=== PATIENT | female | born 1935 | race Caucasian/White ===

== ENCOUNTER 2018-06-09 07:45 | Inpatient (IN) | payer MEDICARE, OTHER ==
[2018-06-09] MEDS ORDERED: SODIUM CHLORIDE 0.9% 1,000 ML IV STA (08:12)
--- NOTE | 2018-06-09 08:13 | ED ---
Chest Pain HPI - General Stated Complaint: Chest Pain Time Seen by Provider: 06/09/18 07:52 Source: RN notes reviewed, old records reviewed - History of Present Illness Initial Comments: This is an 82-year-old female the ER for evaluation. Patient's presenting for evaluation regards to chest pain. Patient is accepted in transfer for cardiac evaluation. Patient does have history of high blood pressure high cholesterol did have continued chest pain dizziness and shortness of breath at [facility], patient currently without chest pain. No recent travel history no sick contacts no recent fevers MD Complaint: chest pain -: hour(s) (Prior to arrival heartbeat, currently chest pain-free) Onset: during rest, awoke with symptoms Pain Location: left chest Pain Radiation: LUE Severity: mild Severity scale (1-10): 3 Quality: aching Consistency: now resolved Improves With: nothing Worsens With: nothing Anginal Symptoms: dyspnea Treatments Prior to Arrival: none - Related Data Allergies Allergy/AdvReac Type Severity Reaction Status Date / Time clindamycin Allergy Rash/Hives Verified 06/09/18 08:36 codeine Allergy Rash/Hives Verified 06/09/18 08:03 latex Allergy Rash/Hives Verified 06/09/18 08:21 Penicillins Allergy Rash/Hives Verified 06/09/18 08:03 Sulfa (Sulfonamide Allergy Rash/Hives Verified 06/09/18 08:03 Antibiotics) aspirin AdvReac Nausea & Verified 06/09/18 08:21 Vomiting Review of Systems ROS Statement: Those systems with pertinent positive or pertinent negative responses have been documented in the HPI. ROS Other: All systems not noted in ROS Statement are negative. EKG Findings - EKG Comments: EKG Findings:: EKG shows sinus rhythm rate of 67, KS 136, QRS 86, QTc 490, patient does have new T-wave inversion laterally General Exam General appearance: alert, in no apparent distress Head exam: Present: atraumatic, normocephalic, normal inspection Eye exam: Present: normal appearance, PERRL, EOMI. Absent: scleral icterus, conjunctival injection, periorbital swelling ENT exam: Present: normal exam, mucous membranes moist Neck exam: Present: normal inspection. Absent: tenderness, meningismus, lymphadenopathy Respiratory exam: Present: normal lung sounds bilaterally. Absent: respiratory distress, wheezes, rales, rhonchi, stridor Cardiovascular Exam: Present: regular rate, normal rhythm, normal heart sounds. Absent: systolic murmur, diastolic murmur, rubs, gallop, clicks GI/Abdominal exam: Present: soft, normal bowel sounds. Absent: distended, tenderness, guarding, rebound, rigid Extremities exam: Present: normal inspection, full ROM, normal capillary refill. Absent: tenderness, pedal edema, joint swelling, calf tenderness Back exam: Present: normal inspection Neurological exam: Present: alert, oriented X3, CN II-XII intact Psychiatric exam: Present: normal affect, normal mood Skin exam: Present: warm, dry, intact, normal color. Absent: rash Course Vital Signs 06/09/18 08:03 Temperature 98.2 F Pulse Rate 71 Respiratory 16 Rate Blood Pressure 180/94 O2 Sat by Pulse 93 L Oximetry - Reevaluation(s) Reevaluation #1: 06/09/18 09:42 Medical record is reviewed and patient's labs are evaluated Reevaluation #2: 06/09/18 09:42 Troponin is increased from 0.2-2.4, cardiology is made aware Chest Pain MDM - MDM 82 female the ER for evaluation, history of high blood pressure cholesterol, patient coming with non-ST elevated NH, does have T-wave inversion positive troponin 2.4 Critical Care Time Critical Care Time: Yes Total Critical Care Time: 31 Disposition Clinical Impression: Chest pain, NSTEMI (non-ST elevated myocardial infarction), ACS (acute coronary syndrome) Disposition: ADMITTED IP TO THIS [facility] Condition: Fair Is patient prescribed a controlled substance at d/c from ED?: No Referrals: Elizabet Christianson FNPBC [Primary Care Provider] - 1-2 days
[2018-06-09 08:56] LABS: Magnesium 1.8 mg/dL (1.6-2.3)
[2018-06-09 09:04] LABS: Partial Thromboplastin Time 19.7 sec (22.0-30.0)
[2018-06-09 09:24] LABS: Creatine Kinase MB 16.4 ng/mL (0.0-2.4)
[2018-06-09] MEDS ORDERED: HEPARIN SODIUM,PORCINE 5,000 UNIT/ML 1 ML VIAL IV ONE (09:37)
[2018-06-09] MEDS ORDERED: HEPARIN SODIUM,PORCINE 5,000 UNIT/ML 1 ML VIAL IV PRN (09:37)
[2018-06-09] MEDS ORDERED: NITROGLYCERIN SL TABS 0.4 MG TAB SUBLINGUAL PRN ×3 (09:37→17:37)
[2018-06-09 09:42] LABS: Troponin I 2.25 ng/mL (0.000-0.034)
[2018-06-09] MEDS ORDERED: HEPARIN SOD,PORK IN 0.45% NACL 25,000 UNIT in 0.45% NACL 1 500ML.BAG IV SCH (09:45)
[2018-06-09] MEDS ORDERED: ALPRAZolam 0.25 MG TAB PO PRN (10:42)
[2018-06-09] MEDS ORDERED: ALPRAZolam 0.5 MG TAB PO PRN (10:42)
[2018-06-09] MEDS ORDERED: ASPIRIN 325 MG TAB PO STA (10:42)
[2018-06-09] MEDS ORDERED: SODIUM CHLORIDE 0.9% 1,000 ML in EMPTY BAG 1 BAG IV ONE (10:42)
[2018-06-09] MEDS ORDERED: ATORVASTATIN 80 MG TAB PO STA (10:42)
[2018-06-09] MEDS: NITROGLYCERIN OINT 1 INCH/GM PACKET TOPICAL SCH ×2 (10:55→22:56)
--- NOTE | 2018-06-09 11:50 | CONS ---
CONSULTATION Mrs. Savage is an 82-year-old female who was transferred from [facility]. She has a history of hypertension and presented to the emergency room at [facility] with symptoms of severe chest discomfort across the chest radiating to the arm associated with dyspnea. Her EKG showed T-wave inversion anteriorly and she had mild troponin elevation. She was transferred to [facility]. At the time of my evaluation, she has minimal discomfort. She denies any prior history. She has a prior history of stroke, but no history of cardiac disease. She has no history of PND or orthopnea. She has some peripheral edema. No dizziness, palpitation, or syncope. Her coronary risk factors are remarkable the history of hypertension. She is nondiabetic, nonsmoker. Her prior history is remarkable for the history of stroke that is a while ago. She cannot recall the name of her medication at this point. REVIEW OF SYSTEMS: RESPIRATORY SYSTEM: She has no history of documented asthma or emphysema. No wheezing. GI SYSTEM: No recent GI bleeding. No peptic ulcer disease. SYSTEM: No dysuria or hematuria, NERVOUS SYSTEM: Prior history of stroke, but no history of seizure. PAST SURGICAL HISTORY: Positive for tonsillectomy, cholecystectomy. She has history of hiatal hernia, but no surgery. PHYSICAL EXAMINATION: She is an 82-year-old female, alert, oriented, in no apparent distress. Blood pressure 180/90 with the heart rate in the 70s. HEAD: Normocephalic. EYES: Sclerae anicteric. NECK: Good carotid upstroke. No jugular venous distention. LUNGS: Clear to auscultation. HEART: Regular rate and rhythm. S1, S2. No S3 with systolic murmur, ejection type, heard at the base. No diastolic murmur. No rub. ABDOMEN: Soft, nontender. Positive bowel sound. No organomegaly. EXTREMITIES: No edema. Intact distal pulses. EKG reveals sinus mechanism with a normal axis and intervals and T-wave inversion in the anterolateral leads consistent with anterior wall ischemia. LAB DATA: Lab data revealed a troponin of 2.2 at [facility]. Her renal function at [facility] was BUN of 17, creatinine of 1. At that time, her troponin was 0.24. IMPRESSION: 1. Acute myocardial infarction, non ST elevation myocardial infarction at this point in the left anterior descending artery territory. 2. History of hypertension. 3. Prior history of stroke. 4. History of arthritis. 5. History of hiatal hernia. RECOMMENDATION: From the cardiac standpoint, I have recommended proceeding with coronary angiography to assess her status and guide her treatment. The rationale behind the procedure, its risks and complications were discussed with the patient who is in full understanding and agreement. An echocardiogram with Doppler will be obtained. Depending on her progress, further recommendation will be made. Thank you for this consult. We will follow with you. MMODL / IJN: [id number] /
[2018-06-09] MEDS ORDERED: ACETAMINOPHEN TAB 325 MG TAB PO PRN (16:00)
[2018-06-09] MEDS ORDERED: NALOXONE 0.4 MG/ML 1 ML VIAL IV PRN (16:00)
--- NOTE | 2018-06-09 16:07 | ECHOF ---
Referral Reason:mi MEASUREMENTS -------- HEIGHT: 165.1 cm WEIGHT: 81.6 kg BP: RVIDd: 2.7 cm (< 3.3) IVSd: 1.2 cm (0.6 - 1.1) LVIDd: 4.2 cm (3.9 - 5.3) LVPWd: 1.3 cm (0.6 - 1.1) IVSs: 1.4 cm LVIDs: 3.2 cm LVPWs: 1.3 cm LA Diam: 3.7 cm (2.7 - 3.8) Ao Diam: 2.8 cm (2.0 - 3.7) AV Cusp: 1.8 cm (1.5 - 2.6) LA Diam: 3.9 cm (2.7 - 3.8) MV EXCURSION: 18.742 mm (> 18.000) MV EF SLOPE: 62 mm/s (70 - 150) EPSS: 0.7 cm MV E Mikey: 0.46 m/s MV DecT: 228 ms MV A Mikey: 0.61 m/s MV E/A Ratio: 0.76 RAP: 5.00 mmHg RVSP: 20.82 mmHg FINDINGS -------- Sinus rhythm. This was a technically adequate study. The left ventricular size is normal. There is mild concentric left ventricular hypertrophy. Overa ll left ventricular systolic function is mild-moderately impaired with, an EF between 40 - 45 %. Mi d anterior LV wall motion is hypokinetic. Apical anterior LV wall motion is hypokinetic. Apical lateral LV wall motion is hypokinetic. The right ventricle is normal in size. The left atrial size is normal. The right atrial size is normal. The aortic valve is trileaflet, and appears structurally normal. No aortic stenosis or regurgitation. Mild mitral annular calcification present. Mild mitral regurgitation is present. Mild tricuspid regurgitation present. There is no evidence of pulmonary hypertension. The right v entricular systolic pressure, as measured by Doppler, is 20.82mmHg. There is no pulmonic regurgitation present. The aortic root size is normal. There is no pericardial effusion. CONCLUSIONS -------- 1. Sinus rhythm. 2. The left ventricular size is normal. 3. There is mild concentric left ventricular hypertrophy. 4. Overall left ventricular systolic function is mild-moderately impaired with, an EF between 40 - 45 %. 5. Mid anterior LV wall motion is hypokinetic. 6. Apical anterior LV wall motion is hypokinetic. 7. Apical lateral LV wall motion is hypokinetic. 8. The left atrial size is normal. 9. The aortic valve is trileaflet, and appears structurally normal. No aortic stenosis or regurgitati on. 10. Mild mitral annular calcification present. 11. Mild mitral regurgitation is present. 12. Mild tricuspid regurgitation present. 13. There is no evidence of pulmonary hypertension. 14. There is no pulmonic regurgitation present. 15. The aortic root size is normal. 16. There is no pericardial effusion. RFID SPECIALIST: Ilana Alba RDCS
--- NOTE | 2018-06-09 16:19 | P.HPIM ---
History of Present Illness H&P Date: 06/09/18 Chief Complaint: Chest pain Patient was seen and examined prior to cardiac catheterization. 82 year old F with PMH Hypertension and CAD presents to the hospital as a transfer from [facility]. Patient reports initially being woken up with excruciating chest pain. Patient states her chest pain was associated with lightheadedness and shortness of breath. She is unable to effectively describe her chest pain at that time. Her pain was worrisome enough to warrant a trip to [facility]. She underwent a comprehensive workup that found she had elevated Troponins. She was transferred to [facility] for further care and management. Patient denies any previous history of DE or CAD. She does report a stroke in the past. Patient denies any exertional chest pain. She denies any paroxysmal nocturnal dyspnea or orthopnea. In the ED, troponin was 2.250 with EKG showing T-wave inversion in the lateral leads. Troponin was 0.24 at [facility]. Currently, patient complains of mild chest pain. Pain is located in the left chest. Pain is 3/10 in severity. Patient describes the pain as soreness and aching in nature. She denies any alleviating or aggravating factors. Patient states radiation of her chest pain into the L arm. Review of Systems All systems: negative Past Medical History Past Medical History: Hyperlipidemia, Hypertension Additional Past Medical History / Comment(s): Right shoulder pain, trigger finger, allergic rhinitis, History of Any Multi-Drug Resistant Organisms: None Reported Past Surgical History: Appendectomy, Cholecystectomy, Hernia Repair, Hysterectomy, Tonsillectomy Additional Past Surgical History / Comment(s): left rotator cuff repair, carpal tunnel release Past Psychological History: No Psychological Hx Reported Smoking Status: Never smoker Past Alcohol Use History: None Reported Past Drug Use History: None Reported Medications and Allergies Home Medications Medication Instructions Recorded Confirmed Type Calcium Carbonate [Tums] 500 mg PO TID PRN 06/09/18 06/09/18 History Clopidogrel [Plavix] 75 mg PO DAILY 06/09/18 06/09/18 History Ranitidine HCl [Zantac] 150 mg PO DAILY 06/09/18 06/09/18 History Triamterene/Hydrochlorothiazid 0.5 tab PO DAILY 06/09/18 06/09/18 History [Maxzide 37.5-25] Allergies Allergy/AdvReac Type Severity Reaction Status Date / Time clindamycin Allergy Rash/Hives Verified 06/09/18 11:01 codeine Allergy Rash/Hives Verified 06/09/18 11:01 latex Allergy Rash/Hives Verified 06/09/18 11:01 Penicillins Allergy Rash/Hives Verified 06/09/18 11:01 Sulfa (Sulfonamide Allergy Rash/Hives Verified 06/09/18 11:01 Antibiotics) aspirin AdvReac Nausea & Verified 06/09/18 11:01 Vomiting Physical Exam Vitals: Vital Signs Temp Pulse Resp BP Pulse Ox 06/09/18 15:53 98.2 F 06/09/18 15:47 82 18 188/92 100 06/09/18 11:30 66 18 188/94 98 06/09/18 10:51 68 18 168/121 96 06/09/18 08:03 98.2 F 71 16 180/94 93 L Intake and Output 06/09/18 06/09/18 06/09/18 06:59 14:59 22:59 Other: Weight 83.18 kg General: [non toxic], [no distress], [appears at stated age] Derm: [warm], [dry] Head: [atraumatic], [normocephalic], [symmetric] Eyes: [EOMI], [no lid lag], [anicteric sclera] Mouth: [no lip lesion], [mucus membranes moist] Cardiovascular: [S1S2 reg], [systolic murmur], [positive DP pulse bilateral], Lungs: [CTA bilateral], [no rhonchi, no rales] , [no accessory muscle use] Abdominal: [soft], [ nontender to palpation], [no guarding], [no appreciable organomegaly] Ext: [no gross muscle atrophy], [no edema], [no contractures] Neuro: [ CN II-XI grossly intact], [no focal neuro deficits] Psych: [Alert], [oriented], [appropriate affect] Results Labs: Abnormal Lab Results - Last 24 Hours (Table) 06/09/18 06/09/18 Range/Units 08:23 08:23 APTT 19.7 L (22.0-30.0) sec Total Creatine Kinase 218 H (30-135) U/L CK-MB (CK-2) 16.4 H (0.0-2.4) ng/mL Troponin I 2.250 H* (0.000-0.034) ng/mL Thrombosis Risk Factor Assmnt - Choose All That Apply Any of the Below Risk Factors Present?: Yes Each Factor Represents 1 point: Obesity (BMI >25) Other Risk Factors: No Other congenital or acquired thrombophilia - If yes, enter type in comment: No Thrombosis Risk Factor Assessment Total Risk Factor Score: 1 Thrombosis Risk Factor Assessment Level: Low Risk Assessment and Plan Assessment: Assessment and Plan 1. Chest pain: Concerns of NSTEMI. Troponin 0.24 to 2.250 with EKG showing T wave inversion in the lateral leads. Start ASA 81 mg PO QD and Lipitor 80 mg PO QHS. Heparin drip pending Cardiac catheterization. Start Metoprolol 50 mg PO BID. Nitrostat PRN for chest pain. Telemetry monitoring. HEART healthy diet. FU Cardiology recommendations, Echocardiogram, Lipid panel 2. Hypertension: BP 188/92. On HCTZ-Triamterene at home. Will hold and start Metoprolol 50 mg PO BID. Monitor vitals, adjust medication as necessary. 3. DVT/GI Prophylaxis: Heparin drip, SCD boots. Pepcid 20 mg PO BID. Patient transferred for troponin elevation. Cardiology consulted, pending cardiac catheterization.
[2018-06-09] MEDS ORDERED: SODIUM CHLORIDE 0.9% 1,000 ML IV ONE (16:20)
[2018-06-09] MEDS ORDERED: VERAPAMIL 2.5 MG/ML 2 ML AMP ONE (16:22)
[2018-06-09] MEDS ORDERED: fentaNYL (PF) 50 MCG/ML 2 ML AMP ONE (16:23)
[2018-06-09] MEDS ORDERED: HEPARIN SODIUM 1,000 UN/ML (10ML VL) ONE (16:23)
[2018-06-09 16:27] LABS: Creatine Kinase MB 56.4 ng/mL (0.0-2.4)
[2018-06-09] MEDS ORDERED: fentaNYL (PF) 50 MCG/ML 2 ML AMP IVP ONE (16:31)
[2018-06-09] MEDS ORDERED: LIDOCAINE 2% INJ 20 MG/ML SQ ONE ×2 (16:33→16:45)
[2018-06-09] MEDS ORDERED: VERAPAMIL SYRINGE (5 MG/10 ML) IVP ONE (16:34)
[2018-06-09] MEDS ORDERED: BIVALIRUDIN BOLUS 250 MG/50 ML IV ONE (16:52)
[2018-06-09] MEDS ORDERED: BIVALIRUDIN 250 MG in SODIUM CHLORIDE 0.9% 50 ML IV ONE (16:52)
[2018-06-09] MEDS ORDERED: CLOPIDOGREL 75 MG TAB ONE (16:54)
[2018-06-09] MEDS ORDERED: NITROGLYCERIN 1000MCG/10ML SYRINGE INTRAARTER ONE (16:57)
[2018-06-09] MEDS ORDERED: CLOPIDOGREL 75 MG TAB PO ONE (16:58)
[2018-06-09] MEDS ORDERED: IOPAMIDOL-370 125ML BTL INJ ONE (17:00)
[2018-06-09] MEDS ORDERED: IOPAMIDOL-370 100ML BTL INJ ONE (17:29)
[2018-06-09] MEDS ORDERED: ATROPINE SULFATE 0.1 MG/ML 10ML SYRINGE IV PRN (17:37)
[2018-06-09] MEDS ORDERED: RX INFO: IV CONTRAST WAS GIVEN 1 EACH MISC MISCELLANE PRN (17:37)
[2018-06-09] MEDS ORDERED: MAG HYDROX/AL HYDROX/SIMETH 30 ML CUP PO PRN (17:37)
[2018-06-09] MEDS ORDERED: ZOLPIDEM 5 MG TAB PO PRN (17:37)
[2018-06-09] MEDS ORDERED: SODIUM CHLORIDE 0.9% 1,000 ML IV SCH (17:45)
[2018-06-09] MEDS: FAMOTIDINE 20 MG TAB PO SCH (20:23)
[2018-06-09] MEDS: LISINOPRIL 5 MG TAB PO SCH (20:23)
[2018-06-09] MEDS: METOPROLOL TARTRATE 50 MG TAB PO SCH (20:23)
[2018-06-09 20:37] LABS: Creatine Kinase MB 55.1 ng/mL (0.0-2.4)
[2018-06-09 20:41] VITALS: BMI 33.5
[2018-06-09 20:45] LABS: Troponin I 14.7 ng/mL (0.000-0.034)
[2018-06-09] MEDS ORDERED: METOPROLOL TARTRATE 50 MG TAB PO SCH (21:00)
--- NOTE | 2018-06-09 23:02 | CC ---
CARDIAC CATHETERIZATION REPORT Mrs. Savage is an 82-year-old female with known history of hypertension, hyperlipidemia, who was transferred from [facility] after she presented with symptoms of chest discomfort and mild elevation of troponin with T-wave inversion anteriorly. In view of that, recommendation made regarding cardiac catheterization. The procedures, risks and complications were discussed with the patient who is in full understanding and agreement. PROCEDURE: Patient was brought to [facility] in a fasting state after receiving fentanyl and Benadryl and achieving moderate conscious sedated state. Using Xylocaine anesthesia and Seldinger technique, a 6-Dominican sheath was introduced in the right radial artery. There was inability to advance the catheter in the right radial artery because of a tight radial loop. At that point, using Xylocaine anesthesia in the Seldinger technique, a 6-Dominican sheath was introduced in the right femoral artery. Selective right and left coronary angiography performed using 6-Dominican 4 and half bend left Chuck and 4-Dominican right Chuck catheter. Multiple views of the coronary artery including hemiaxial views were obtained. Following that, angioplasty and stenting was performed. Following that, a 6-Dominican tight pigtail catheter was introduced into the left ventricle and pressures were calculated. Following that, the catheters were removed. The right femoral sheath was sutured in place and the right radial artery sheath was removed and hemostasis was obtained with TR band placement. There was no immediate complication. FINDINGS: FLUOROSCOPY: There was a 2nd calcification involving the left anterior descending artery. SELECTIVE CORONARY ANGIOGRAPHY: LEFT MAIN: This is a large-sized vessel bifurcating left circumflex, left anterior descending artery, left main coronary artery has no evidence of high-grade stenosis. LEFT ANTERIOR DESCENDING ARTERY: This is a large-sized vessel reaching toward the apex with a wraparound apex segment giving rise to a large diagonal branch proximally. The LAD at the takeoff of diagonal branch has a 99% stenosis. The diagonal branch has a long diffuse area of stenosis up to 85-90 percent. The rest of the vessel has no high- grade stenosis. LEFT CIRCUMFLEX: This is a large dominant vessel bifurcating distally PDA and posterolateral segment branches, giving rise to a large obtuse marginal branch proximally. The left circumflex proximally has a 20% to 30% plaque. RIGHT CORONARY ARTERY: This is a small nondominant vessel that has 50% plaque proximally. The rest of the vessel has no high-grade stenosis. LEFT VENTRICULOGRAM: Left ventriculogram was not performed. HEMODYNAMICS: There was no gradient across the aortic valve. The left ventricle end-diastolic pressure was 24 mm of Hg. CONCLUSION: 1. 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 2. Mild to moderate disease in the right coronary artery and the right coronary artery and left circumflex. 3. Elevated left ventricle end-diastolic pressure. RECOMMENDATION: In view of that and in view of finding in the anatomy, I recommend proceeding with angioplasty and stenting of the LAD and diagonal branch. The procedures as well as risks and complications were discussed with the patient who is in full understanding and agreement. MMODL / IJN: [id number] /
--- NOTE | 2018-06-09 23:14 | PTCA ---
PERCUTANEOUSTRANS CORORONARY ANGIOGRAPHY Mrs. Savage is an 82-year-old female known history of hypertension, hyperlipidemia, who presented with an acute non ST-segment elevation myocardial infarction. The LAD territory underwent cardiac catheterization, was found to have critical stenosis involving the LAD and diagonal branch. In view of that, recommendation regarding angioplasty and stenting the procedures risks and complication were discussed with the patient who is in full understanding and agreement. PROCEDURE: A 6-German FR4 guiding catheter in the system. After cannulating the left main, a 0.014 balanced medium weight J-wire was advanced across the lesion, that lesion positioned distal LAD. Subsequently another 0.014 balanced medium weight J-wire was advanced in position in the first diagonal branch. Following that, attempt to advance a 2.5 x 23 mm Xience Angie stent into the diagonal branch were unsuccessful. That stent was removed and a 2.5 x 12 mm balloon was advanced into inflation at 8 atmospheres was done for were done. Following that, the balloon was removed and the stent was advanced, deployed and post at 16 atmospheres. Following that, the balloon was removed and a 2.75 x 18 mm Xience CR stent was deployed in the LAD and post dilated at 16 atmospheres following that the balloon was removed and a 2.75 x 12 mm CR Xience Angie stent was deployed proximal to the LAD stent and postdilated at 16 atmospheres. Following that, images were obtained repeated. Those images reveal stable successful stenting. At that point, the guiding catheter, the balloon and the guidewire removed. The left ventricular end-diastolic pressure was calculated following that. The catheter were removed. The sheath was sutured in place and the radial sheath was removed and hemostasis was obtained with deployment of a TR band. There was no immediate complication patient is returned to her room in stable condition. Of note, the patient received Angiomax per protocol as well as continued on Plavix. She had chest discomfort and EKG changes with the inflation that resolved at the end procedure. RESULTS: 1. Successful stenting of the proximal LAD with reduction of stenosis from 99% to 0%. 2. Successful stenting of the first diagonal branch with reduction of stenosis from 90% to 0%. RECOMMENDATION: Patient be continued on aspirin, Plavix beta blockers and statin the importance of dual antiplatelet treatment were discussed with the patient and her family and they are in full understanding and agreement. Duration of procedure: 57 minutes. MMODL / IJN: [id number] /
[2018-06-10] MEDS: HYDROcodone/APAP 5-325MG 1 EACH TAB PO PRN ×2 (01:27→15:40)
[2018-06-10 06:26] LABS: Basophils % (A) 0 %; Eosinophils # (A) 0.1 k/uL (0-0.7); Eosinophils % (A) 1 %; HCT 45.2 % (34.0-46.0); HGB 14.5 gm/dL (11.4-16.0); Lymphocytes # (A) 0.9 k/uL (1.0-4.8); Lymphocytes % (A) 10 %; MCH 29.4 pg (25.0-35.0); MCV 91.9 fL (80.0-100.0); Mean Platelet Volume 7.2; Monocytes # (A) 0.5 k/uL (0-1.0); Monocytes % (A) 6 %; Neutrophils # (A) 6.6 k/uL (1.3-7.7); Neutrophils % (A) 80 %; Platelet Count 165 k/uL (150-450); RBC 4.92 m/uL (3.80-5.40); RDW 13.1 % (11.5-15.5); WBC 8.3 k/uL (3.8-10.6)
[2018-06-10 07:19] LABS: Carbon Dioxide 19 mmol/L (22-30); Chloride 111 mmol/L (98-107); Glucose 179 mg/dL (74-99); Potassium 3.8 mmol/L (3.5-5.1); Sodium 139 mmol/L (137-145)
[2018-06-10 07:20] LABS: Anion Gap 9 mmol/L; Blood Urea Nitrogen 14 mg/dL (7-17); Calcium 8.8 mg/dL (8.4-10.2); Cholesterol 138 mg/dL (<200); HDL Cholesterol 49 mg/dL (40-60); LDL Cholesterol,Calculated 74 mg/dL (0-99); Triglycerides 73 mg/dL (<150)
[2018-06-10] MEDS: LISINOPRIL 5 MG TAB PO SCH (08:06)
[2018-06-10] MEDS: ASPIRIN 81 MG PO SCH (08:06)
[2018-06-10] MEDS: METOPROLOL TARTRATE 50 MG TAB PO SCH ×2 (08:06→20:29)
[2018-06-10] MEDS: FAMOTIDINE 20 MG TAB PO SCH ×2 (08:06→20:30)
[2018-06-10] MEDS: ATORVASTATIN 80 MG TAB PO SCH (08:06)
--- NOTE | 2018-06-10 08:59 | P.DS ---
Providers Date of admission: 06/09/18 09:37 Expected date of discharge: 06/10/18 Attending physician: Steve Dove Consults: 06/09/18 09:37 Consult Physician Urgent Consulting Provider: Wyatt Mata Consult Reason/Comments: nstemi Do you want consulting provider notified?: Yes 06/09/18 17:37 Consult Physician Routine Consulting Provider: [facility] Consult Reason/Comments: Post Interventional patient Do you want consulting provider notified?: Already Contacted Primary care physician: Elizabet Christianson [facility] - Discharge Diagnosis(es) (1) Hypertension Current Visit: Yes Status: Acute (2) History of CVA (cerebrovascular accident) Current Visit: Yes Status: Acute (3) NSTEMI (non-ST elevated myocardial infarction) Current Visit: Yes Status: Acute Hospital Course: 82 year old F with PMH Hypertension and CAD presents to the hospital as a transfer from [facility]. Patient reports initially being woken up with excruciating chest pain. Patient states her chest pain was associated with lightheadedness and shortness of breath. She is unable to effectively describe her chest pain at that time. Chest pain at that time was across her chest, extremely severe and radiated into both arms. Her pain was worrisome enough to warrant a trip to [facility]. She underwent a comprehensive workup that found she had elevated Troponin. She was transferred to [facility] for further care and management. Patient denies any previous history of MT or CAD. She does report a stroke in the past, last in 2012 with right-sided residual weakness that has since resolved. Patient denies any exertional chest pain. She denies any paroxysmal nocturnal dyspnea or orthopnea. In the ED, troponin was 2.250 with EKG showing T-wave inversion in the lateral leads. Troponin was 0.24 at [facility]. With regard to her chest pain, she was taken in for coronary catheterization from the emergency room. Catheterization revealed 99% occlusion of the LAD and 90% occlusion of the first diagonal which was successfully stented. Echocardiogram was obtained which showed an ejection fraction of 40-45% with hypokinetic wall motions. Heparin drip was discontinued after the procedure and patient was started on aspirin and Plavix. She was resumed on Lipitor and metoprolol. She was started on lisinopril as well. Patient was seen and examined on 06/10/2018 at 8:45AM. Patient states that her chest pain is resolved since the catheterization. She denies any chest pain, shortness of breath or palpitations at this time. General: [non toxic], [no distress], [appears at stated age] Derm: [warm], [dry] Head: [atraumatic], [normocephalic], [symmetric] Eyes: [EOMI], [no lid lag], [anicteric sclera] Mouth: [no lip lesion], [mucus membranes moist] Cardiovascular: [S1S2 reg], [systolic murmur], [positive DP pulse bilateral], Lungs: [CTA bilateral], [no rhonchi, no rales] , [no accessory muscle use] Abdominal: [soft], [ nontender to palpation], [no guarding], [no appreciable organomegaly] Ext: [no gross muscle atrophy], [no edema], [no contractures] Neuro: [no focal neuro deficits] Psych: [Alert], [oriented], [appropriate affect] Assessment and Plan 1. Chest pain: Concerns of NSTEMI. Troponin 0.24 to 2.250 with EKG showing T wave inversion in the lateral leads. Coronary cath shows 99% occlusion of LAD and 90% occlusion of the first diagonal, successfully stented. Echocardiogram shows EF of 40-45% with hypokinetic wall motion. Continue ASA 81 mg PO QD, Plavix 75 mg PO QD and Lipitor 80 mg PO QHS. Continue Metoprolol 50 mg PO BID. Start Lisinopril 5 mg PO BID. Lipid panel shows LDL 74 within normal limits. Nitrostat PRN for chest pain. Telemetry monitoring. HEART healthy diet. FU Cardiology recommendations 2. Hypertension: BP 143/69. On HCTZ-Triamterene at home. Continue Metoprolol 50 mg PO BID and start Lisinopril 5 mg PO BID. Monitor vitals, adjust medication as necessary. 3. h/o CVA: Stable. Continue ASA 81 mg PO QD, Plavix 75 mg PO QD and Lipitor 80 mg PO QHS. 4. DVT/GI Prophylaxis: Heparin drip, SCD boots. Pepcid 20 mg PO BID. Patient underwent coronary catheterization, 2 CYNTHIA successfully placed. Will follow cardiology recommendations for discharge planning. Possible DC today or tomorrow. Patient is advised on the need of dual antiplatelet therapy. Will need good cardiology follow-up on discharge. This complex discharge took greater than 30 minutes. Pertinent Studies: Coronary catheterization Echocardiogram Procedures: Coronary catheterization Patient Condition at Discharge: Stable Plan - Discharge Summary Discharge Rx Participant: No New Discharge Prescriptions: New Acetaminophen Tab [Tylenol] 650 mg PO Q6HR PRN #0 tab PRN Reason: Mild Pain Or Fever > 100.5 Aspirin 81 mg PO DAILY #30 chew Atorvastatin [Lipitor] 80 mg PO DAILY #30 tab Clopidogrel [Plavix] 75 mg PO DAILY #30 tab Lisinopril [Zestril] 5 mg PO BID #60 tab Metoprolol Tartrate [Lopressor] 25 mg PO BID #60 tab Nitroglycerin Sl Tabs [Nitrostat] 0.4 mg SUBLINGUAL Q5M PRN #30 tab PRN Reason: Chest Pain Continue Ranitidine HCl [Zantac] 150 mg PO DAILY Clopidogrel [Plavix] 75 mg PO DAILY Calcium Carbonate [Tums] 500 mg PO TID PRN PRN Reason: Heartburn Discontinued Triamterene/Hydrochlorothiazid [Maxzide 37.5-25] 0.5 tab PO DAILY Discharge Medication List Calcium Carbonate [Tums] 500 mg PO TID PRN 06/09/18 [History] Clopidogrel [Plavix] 75 mg PO DAILY 06/09/18 [History] Ranitidine HCl [Zantac] 150 mg PO DAILY 06/09/18 [History] Acetaminophen Tab [Tylenol] 650 mg PO Q6HR PRN #0 tab 06/10/18 [Rx] Aspirin 81 mg PO DAILY #30 chew 06/10/18 [Rx] Atorvastatin [Lipitor] 80 mg PO DAILY #30 tab 06/10/18 [Rx] Clopidogrel [Plavix] 75 mg PO DAILY #30 tab 06/10/18 [Rx] Lisinopril [Zestril] 5 mg PO BID #60 tab 06/10/18 [Rx] Metoprolol Tartrate [Lopressor] 25 mg PO BID #60 tab 06/10/18 [Rx] Nitroglycerin Sl Tabs [Nitrostat] 0.4 mg SUBLINGUAL Q5M PRN #30 tab 06/10/18 [Rx ] Follow up Appointment(s)/Referral(s): Elizabet Christianson FNPBC [Primary Care Provider] - 1-2 days Wyatt Mata MD [STAFF PHYSICIAN] - 1 Week Activity/Diet/Wound Care/Special Instructions: Diet: HEART healthy Please take all medications as advised. Please follow-up with your primary care provider within 1-2 days of discharge. Please follow-up with cardiology Dr. Mata within 1 week of discharge. Discharge Disposition: HOME SELF-CARE
[2018-06-10] MEDS ORDERED: ASPIRIN 325 MG TAB PO SCH (09:00)
--- NOTE | 2018-06-10 11:21 | PN ---
PROGRESS NOTE Mrs. Savage is an 82-year-old female who presented with non ST-segment elevation myocardial infarction, underwent stenting of her LAD and diagonal branch. She is doing well this morning. Her breathing is stable. She is denying any chest pain. She denies any dizziness or palpitation. She has continued to be on aspirin once a day, Lipitor 80 mg daily, Plavix 75 mg daily, lisinopril 5 mg twice a day, metoprolol tartrate 25 mg twice a day. PHYSICAL EXAMINATION: Blood pressure running in the 130s to 140s with a heart rate in 70s. LUNGS: Clear. Heart regular rate rhythm S1, S2. No S3 with systolic murmur. No diastolic murmur. No rub. ABDOMEN: Soft, nontender. Right groin hematoma. Right radial pulse is intact. LAB DATA: BUN and creatinine 14 and 0.7. Hemoglobin 14.5. Her peak troponin 14.7, LDL of 74. Her NT proBNP 2530. IMPRESSION: 1. Status post non ST-segment elevation myocardial infarction and stenting of the LAD and diagonal branch. 2. Hypertension. 3. Hyperlipidemia. RECOMMENDATIONS: I will increase the dose of her lisinopril. I will add Aldactone to her regimen, increase her level of activity. If she remains stable, she may be able to be discharged home tomorrow. MMODL / IJN: [id number] /
[2018-06-10] MEDS: SPIRONOLACTONE 25 MG TAB PO SCH (11:27)
[2018-06-10] MEDS: CLOPIDOGREL 75 MG TAB PO SCH (15:34)
[2018-06-10] MEDS: LISINOPRIL 10 MG TAB PO SCH (20:30)
[2018-06-11 06:38] LABS: Anion Gap 6 mmol/L; Blood Urea Nitrogen 17 mg/dL (7-17); Calcium 8.5 mg/dL (8.4-10.2); Carbon Dioxide 24 mmol/L (22-30); Chloride 107 mmol/L (98-107); Glucose 120 mg/dL (74-99); Mean Platelet Volume 7.3; Platelet Count 171 k/uL (150-450); Potassium 3.8 mmol/L (3.5-5.1); Sodium 137 mmol/L (137-145)
[2018-06-11] MEDS: ASPIRIN 81 MG PO SCH (09:04)
[2018-06-11] MEDS: SPIRONOLACTONE 25 MG TAB PO SCH (09:04)
[2018-06-11] MEDS: LISINOPRIL 10 MG TAB PO SCH (09:04)
[2018-06-11] MEDS: CLOPIDOGREL 75 MG TAB PO SCH (09:04)
[2018-06-11] MEDS: METOPROLOL TARTRATE 50 MG TAB PO SCH (09:04)
[2018-06-11] MEDS: FAMOTIDINE 20 MG TAB PO SCH (09:04)
[2018-06-11] MEDS: ATORVASTATIN 80 MG TAB PO SCH (09:04)
--- NOTE | 2018-06-11 09:08 | P.PN ---
Subjective Progress Note Date: 06/11/18 Principal diagnosis: NSTEMI patient was seen and examined. No acute events overnight. No more chest pain since cardiac catheterization. She denies any shortness of breath or palpitations. She denies any groin pain. Looking for to going home. Objective - Vital Signs Vital signs: Vital Signs Temp 98.4 F 06/11/18 03:49 Pulse 64 06/11/18 03:49 Resp 18 06/11/18 03:49 BP 150/79 06/11/18 03:49 Pulse Ox 95 06/11/18 03:49 Intake & Output 06/10/18 06/11/18 06/11/18 18:59 06:59 18:59 Intake Total 3030 1999 240 Balance 3030 1999 240 Weight 81.8 kg Intake: IV 3030 1999 Invasive Line 1 30 Invasive Line 2 3000 1999 Oral 240 Other: Voiding Method Toilet Toilet - Exam General: [non toxic], [no distress], [appears at stated age] Derm: [warm], [dry] Head: [atraumatic], [normocephalic], [symmetric] Eyes: [EOMI], [no lid lag], [anicteric sclera] Mouth: [no lip lesion], [mucus membranes moist] Cardiovascular: [S1S2 reg], [systolic murmur], [positive DP pulse bilateral], Lungs: [CTA bilateral], [no rhonchi, no rales] , [no accessory muscle use] Abdominal: [soft], [ nontender to palpation], [no guarding], [right groin no hematoma] Ext: [no gross muscle atrophy], [no edema], [no contractures] Neuro: [no focal neuro deficits] Psych: [Alert], [oriented], [appropriate affect] - Labs CBC & Chem 7: 06/11/18 05:56 06/11/18 05:56 Labs: Abnormal Lab Results - Last 24 Hours (Table) 06/11/18 Range/Units 05:56 Glucose 120 H (74-99) mg/dL Assessment and Plan Assessment: Assessment and Plan 1. NSTEMI: Troponin 0.24 to 2.250 with EKG showing T wave inversion in the lateral leads. Coronary cath shows 99% occlusion of LAD and 90% occlusion of the first diagonal, successfully stented. Echocardiogram shows EF of 40-45% with hypokinetic wall motion. Continue ASA 81 mg PO QD, Plavix 75 mg PO QD and Lipitor 80 mg PO QHS. Continue Metoprolol 50 mg PO BID, Lisinopril 5 mg PO BID. Start Aldactone 25 mg PO QD. Lipid panel shows LDL 74 within normal limits. Nitrostat PRN for chest pain. Telemetry monitoring. HEART healthy diet. FU Cardiology recommendations 2. Hypertension: BP 150/79. On HCTZ-Triamterene at home. Continue Metoprolol 50 mg PO BID, Lisinopril 5 mg PO BID. Start Aldactone 25 mg PO QD. Monitor vitals, adjust medication as necessary. 3. h/o CVA: Stable. Continue ASA 81 mg PO QD, Plavix 75 mg PO QD and Lipitor 80 mg PO QHS. 4. DVT/GI Prophylaxis: Heparin drip, SCD boots. Pepcid 20 mg PO BID. Patient underwent coronary catheterization, 2 CYNTHIA successfully placed. Patient is advised on the need of dual antiplatelet therapy. Will need good cardiology follow-up on discharge. Possible DC today. (1) Hypertension Current Visit: Yes Status: Acute Code(s): I10 - ESSENTIAL (PRIMARY) HYPERTENSION SNOMED Code(s): 95034845 (2) History of CVA (cerebrovascular accident) Current Visit: Yes Status: Acute Code(s): Z86.73 - PRSNL HX OF TIA (TIA), AND CEREB INFRC W/O RESID DEFICITS SNOMED Code(s): 488341211 (3) NSTEMI (non-ST elevated myocardial infarction) Current Visit: Yes Status: Acute Code(s): I21.4 - NON-ST ELEVATION (NSTEMI) MYOCARDIAL INFARCTION SNOMED Code(s): 600382121
[2018-06-11 09:42] VITALS: RESP 20
--- NOTE | 2018-06-11 09:46 | P.PN ---
Subjective Progress Note Date: 06/11/18 This is a pleasant 82-year-old female who presented to the hospital with a non-ST elevation myocardial infarction, underwent stenting of the LAD and diagonal branch. Patient is doing well this morning, denies any chest pain or difficulty in breathing. Hemodynamically stable. Blood pressure 150/78 with a heart rate in the 60s, 95% on room air. White blood cell count 8.3, hemoglobin 14.5, platelet count 171. Sodium 137, potassium 3.8, BUN 17, creatinine 0.6. Echocardiogram with Doppler study revealed an ejection fraction of 40-45%. Objective - Vital Signs Vital signs: Vital Signs Temp 98.4 F 06/11/18 03:49 Pulse 64 06/11/18 03:49 Resp 18 06/11/18 03:49 BP 150/79 06/11/18 03:49 Pulse Ox 95 06/11/18 03:49 Intake & Output 06/10/18 06/11/18 06/11/18 18:59 06:59 18:59 Intake Total 3030 2000 480 Output Total 800 Balance 3030 2000 -320 Weight 81.8 kg Intake: IV 3030 2000 Invasive Line 1 30 Invasive Line 2 3000 2000 Oral 480 Output: Urine 800 Other: Voiding Method Toilet Toilet - Exam PHYSICAL EXAMINATION: GENERAL: 82-year-old female in no acute distress at the time of my examination HEENT: Head is atraumatic, normocephalic. Pupils equal, round. Sclera anicteric. Conjunctiva are clear. Mucous membranes of the mouth are moist. Neck is supple. There is no elevated jugular venous pressure. No carotid bruit is heard. HEART EXAMINATION: Heart S1, S2 systolic murmur is heard. No murmur or gallop heard. CHEST EXAMINATION: Lungs are clear to auscultation and precussion. No chest wall tenderness is noted on palpation or with deep breathing. ABDOMEN: Soft, nontender. Bowel sounds are heard. No organomegaly noted. EXTREMITIES: 2+ peripheral pulses with no evidence of peripheral edema and no calf tenderness noted. NEUROLOGIC patient is awake, alert and oriented 3 . . - Labs CBC & Chem 7: 06/11/18 05:56 06/11/18 05:56 Labs: Abnormal Lab Results - Last 24 Hours (Table) 06/11/18 Range/Units 05:56 Glucose 120 H (74-99) mg/dL Assessment and Plan Plan: Assessment and plan #1 status post non-ST elevation myocardial infarction with stenting of the LAD and diagonal #2 hypertension #3 hyperlipidemia Plan From cardiology's perspective, patient may be able to be discharged home today. We'll make her a follow-up appointment to see Dr. Mata in the office post discharge. Patient will be discharged home on aspirin 81 mg daily, Plavix 75 mg daily, lisinopril 10 mg one tablet by mouth twice a day, metoprolol 25 mg one tablet by mouth twice a day, Aldactone 25 mg daily and sublingual nitroglycerin as needed for chest pain. DNP note has been reviewed, I agree with a documented findings and plan of care. Patient was seen and examined.
[2018-06-11 12:12] VITALS: BP 116/62; PULSE 70; TEMP 99.6
== END 2018-06-11 12:55 | disposition home or self-care (01) | DRG 247 ==
LOC: EC 07:45 → 3SCARD 09:37
PROVIDERS: ADMIT Internal Medicine; ATTEND Internal Medicine
PROC: 027135Z Dilation of Coronary Artery, Two Arteries with Two Drug-eluting Intraluminal Devices, Percutaneous Approach (ICD-10-PCS; principal; 2018-06-09 16:00)
PROC: B2111ZZ Fluoroscopy of Multiple Coronary Arteries using Low Osmolar Contrast (ICD-10-PCS; 2018-06-09 16:00)
DX: I21.4 Non-ST elevation (NSTEMI) myocardial infarction (principal); I25.10 Atherosclerotic heart disease of native coronary artery without angina pectoris; E78.5 Hyperlipidemia, unspecified; I10 Essential (primary) hypertension; M19.90 Unspecified osteoarthritis, unspecified site; J30.9 Allergic rhinitis, unspecified; K44.9 Diaphragmatic hernia without obstruction or gangrene; Z79.02 Long term (current) use of antithrombotics/antiplatelets; Z79.899 Other long term (current) drug therapy; Z86.73 Personal history of transient ischemic attack (TIA), and cerebral infarction without residual deficits; Z90.710 Acquired absence of both cervix and uterus; Z90.49 Acquired absence of other specified parts of digestive tract; Z98.890 Other specified postprocedural states; Z88.1 Allergy status to other antibiotic agents; Z88.0 Allergy status to penicillin; Z91.040 Latex allergy status; Z88.6 Allergy status to analgesic agent; Z88.5 Allergy status to narcotic agent; Z88.2 Allergy status to sulfonamides
CPT/HCPCS: 36415; 80048; 80061; 82550; 82553; 83690; 83735; 83880; 84484; 85025; 85049; 85610; 85730; 93005; 93306; 93458; 96361; 96365; 96366; 96376; 99291; C1874

== ENCOUNTER 2023-10-26 16:31 | Inpatient (IN) | payer MEDICARE, OTHER ==
[2023-10-26] MEDS: SODIUM CHLORIDE 0.9% 1,000 ML IV SCH (17:11)
[2023-10-26 17:25] LABS: Basophils % (A) 0 %; Eosinophils # (A) 0.2 k/uL (0-0.7); Eosinophils % (A) 1 %; HCT 53.5 % (34.0-46.0); HGB 17.2 gm/dL (11.4-16.0); Lymphocytes # (A) 0.5 k/uL (1.0-4.8); Lymphocytes % (A) 3 %; MCH 29.6 pg (25.0-35.0); MCHC 32.1 g/dL (31.0-37.0); MCV 92.4 fL (80.0-100.0); Mean Platelet Volume 8.4; Monocytes # (A) 1.4 k/uL (0-1.0); Monocytes % (A) 7 %; Neutrophils # (A) 17.3 k/uL (1.3-7.7); Neutrophils % (A) 88 %; Platelet Count 223 k/uL (150-450); RBC 5.79 m/uL (3.80-5.40); RDW 13.6 % (11.5-15.5); WBC 19.7 k/uL (3.8-10.6)
[2023-10-26 17:45] LABS: ALT 52 U/L (4-34); AST 166 U/L (14-36); African American GFR (CKD) 63 (>60 ml/min/1.73 sqM); Albumin 3.9 g/dL (3.5-5.0); Alkaline Phosphatase 76 U/L (38-126); Anion Gap 9 mmol/L; Blood Urea Nitrogen 49 mg/dL (7-17); Calcium 9.6 mg/dL (8.4-10.2); Carbon Dioxide 27 mmol/L (22-30); Chloride 103 mmol/L (98-107); Glucose 159 mg/dL (74-99); Non-African American GFR(CKD) 55 (>60 ml/min/1.73 sqM); Potassium 4.6 mmol/L (3.5-5.1); Sodium 139 mmol/L (137-145); Total Bilirubin 1.3 mg/dL (0.2-1.3); Total Protein 6.6 g/dL (6.3-8.2)
[2023-10-26 18:45] LABS: Creatine Kinase 4541 U/L (30-135)
--- NOTE | 2023-10-26 18:45 | ED ---
Abdominal Pain HPI - General Chief Complaint: Abdominal Pain Stated Complaint: Fall Time Seen by Provider: 10/26/23 16:39 Source: patient, EMS Mode of arrival: EMS Limitations: no limitations - History of Present Illness Initial Comments: 88-year-old female presents emergency department as a transfer from [place]. Patient reports that she was not feeling well yesterday and therefore she laid down on her kitchen floor. She was found today by a maintenance supervisor 2nd shift. She was reported that she was having abdominal pain, nausea and vomiting. Patient does have some bruising noted to the left side of her face and left shoulder as she was stuck on the ground for 12 hours. Laboratory studies were completed as well as imaging. Patient had no traumatic injuries however she did have an elevated CK, lactic of 5 and was found to have a small bowel obstruction. No history of small bowel obstructions. She is status post cholecystectomy and hysterectomy. Patient received 4 of Zofran and a liter of fluid and feels improved. No other alleviating, precipitating modifying factors - Related Data Home Medications Medication Instructions Recorded Confirmed Famotidine [Pepcid] 20 mg PO DAILY 10/26/23 10/26/23 Previous Rx's Medication Instructions Recorded Atorvastatin [Lipitor] 80 mg PO DAILY #30 tab 06/10/18 Metoprolol Tartrate [Lopressor] 25 mg PO BID #60 tab 06/10/18 Spironolactone [Aldactone] 25 mg PO DAILY #30 tab 06/11/18 Allergies Allergy/AdvReac Type Severity Reaction Status Date / Time clindamycin Allergy Rash/Hives Verified 10/26/23 18:06 codeine Allergy Rash/Hives Verified 10/26/23 18:06 latex Allergy Rash/Hives Verified 10/26/23 18:06 Penicillins Allergy Rash/Hives Verified 10/26/23 18:06 Sulfa (Sulfonamide Allergy Rash/Hives Verified 10/26/23 18:06 Antibiotics) aspirin AdvReac Nausea & Verified 10/26/23 18:06 Vomiting Review of Systems ROS Statement: Those systems with pertinent positive or pertinent negative responses have been documented in the HPI. ROS Other: All systems not noted in ROS Statement are negative. Past Medical History Past Medical History: CVA/TIA, Hyperlipidemia, Hypertension Additional Past Medical History / Comment(s): Right shoulder pain, trigger finger, allergic rhinitis,. CVA in 2013 x3 History of Any Multi-Drug Resistant Organisms: None Reported Past Surgical History: Appendectomy, Cholecystectomy, Hernia Repair, Hysterectomy, Tonsillectomy Additional Past Surgical History / Comment(s): left rotator cuff repair, carpal tunnel release Past Psychological History: No Psychological Hx Reported Past Alcohol Use History: None Reported Past Drug Use History: None Reported - Past Family History Father Family Medical History: CVA/TIA Additional Family Medical History / Comment(s): stated her he had 8 strokes Mother Family Medical History: Cancer Additional Family Medical History / Comment(s): from cancer General Exam Limitations: no limitations General appearance: alert, in no apparent distress Head exam: Present: other (bruising around the left eye) Eye exam: Present: normal appearance, PERRL, EOMI. Absent: scleral icterus, conjunctival injection, periorbital swelling ENT exam: Present: normal exam, mucous membranes moist Respiratory exam: Present: normal lung sounds bilaterally. Absent: respiratory distress, wheezes, rales, rhonchi, stridor Cardiovascular Exam: Present: regular rate, normal rhythm, normal heart sounds. Absent: systolic murmur, diastolic murmur, rubs, gallop, clicks GI/Abdominal exam: Present: tenderness (Generalized). Absent: guarding, rebound, rigid Extremities exam: Present: other (Some bruising to the left anterior shoulder) Neurological exam: Present: alert, oriented X3, CN II-XII intact Psychiatric exam: Present: normal affect, normal mood Course Vital Signs 10/26/23 10/26/23 10/26/23 16:33 16:39 16:45 Temperature 97.7 F Pulse Rate 98 104 H 101 H Pulse Rate [ Pulse Oximetery ] Respiratory 18 18 Rate Blood Pressure 160/98 160/98 Blood Pressure [Right Arm] O2 Sat by Pulse 94 L 85 L 96 Oximetry 10/26/23 10/26/23 10/26/23 17:00 17:30 18:00 Temperature Pulse Rate 105 H 98 98 Pulse Rate [ Pulse Oximetery ] Respiratory 20 20 18 Rate Blood Pressure 156/96 173/93 169/93 Blood Pressure [Right Arm] O2 Sat by Pulse 94 L 95 96 Oximetry 10/26/23 10/26/23 10/26/23 18:30 19:10 20:00 Temperature 98.2 F Pulse Rate 100 98 Pulse Rate [ 113 H Pulse Oximetery ] Respiratory 16 28 H 16 Rate Blood Pressure 153/98 173/86 Blood Pressure 160/92 [Right Arm] O2 Sat by Pulse 94 L 96 90 L Oximetry 10/26/23 20:44 Temperature Pulse Rate 108 H Pulse Rate [ Pulse Oximetery ] Respiratory 25 H Rate Blood Pressure 145/86 Blood Pressure [Right Arm] O2 Sat by Pulse 95 Oximetry Medical Decision Making - Medical Decision Making Was pt. sent in by a medical professional or institution (, PA, TRACTOR ENGINE MECHANIC, urgent care, hospital, or shelter...) When possible be specific @ -Patient was sent by [facility] Did you speak to anyone other than the patient for history (EMS, parent, family, police, friend...)? What history was obtained from this source @ -Spoke with the transferring doctor Did you review nursing and triage notes (agree or disagree)? Why? @ -I reviewed and agree with nursing and triage notes Were old charts reviewed (outside hosp., previous admission, EMS record, old EKG, old radiological studies, urgent care reports/EKG's, shelter records)? Report findings @ -I reviewed the patient's chart from transferring facility Differential Diagnosis (chest pain, altered mental status, abdominal pain women, abdominal pain men, vaginal bleeding, weakness, fever, dyspnea, syncope, headache, dizziness, GI bleed, back pain, seizure, CVA, palpatations, mental health, musculoskeletal)? @ -Differential Abdominal Pain Women: Appendicitis, Cholecystitis, diverticulosis, ischemic bowel, pancreatitis, hepatitis, UTI, gastroenteritis, AAA, incarcerated hernia, bowel obstruction, constipation, inflammatory bowel, hepatitis, peptic ulcer disease, splenic infarction, perforated viscus, vulvitis, ovarian torsion, PID, kidney stone, placenta abruption, this is not meant to be an all-inclusive list EKG interpreted by me (3pts min.). @ -Not done at our facility X-rays interpreted by me (1pt min.). @ -None done CT interpreted by me (1pt min.). @ -None done U/S interpreted by me (1pt. min.). @ -None done What testing was considered but not performed or refused? (CT, X-rays, U/S, labs)? Why? @ -Additional laboratory studies and imaging was considered however patient did have full workup at outside hospital What meds were considered but not given or refused? Why? @ -None Did you discuss the management of the patient with other professionals (professionals i.e. DrTasha, PA, TRACTOR ENGINE MECHANIC, lab, RT, psych nurse, social media sr strategy manager, continuous improvement director, teacher, officer lieutenant, rn case mgr)? Give summary @ -Spoke with Dr. ortega will admit the patient Was smoking cessation discussed for >3mins.? @ -No Was critical care preformed (if so, how long)? @ -No Were there social determinants of health that impacted care today? How? (Homelessness, low income, unemployed, alcoholism, drug addiction, transportation, low edu. Level, literacy, decrease access to med. care, alf, rehab)? @ -No Was there de-escalation of care discussed even if they declined (Discuss DNR or withdrawal of care, Hospice)? DNR status @ -No What co-morbidities impacted this encounter? (DM, HTN, Smoking, COPD, CAD, Cancer, CVA, ARF, Chemo, Hep., AIDS, mental health diagnosis, sleep apnea, morbid obesity)? @ -Coronary artery disease Was patient admitted / discharged? Hospital course, mention meds given and route, prescriptions, significant lab abnormalities, going to OR and other pertinent info. @ -Upon arrival patient was placed into room 7. She did have full outside workup. Patient has no traumatic injuries from laying down on the ground however she does have an elevated CK and lactic acid. Patient is initiated on IV fluids. She does have an elevated white blood cell count however patient has no source of infection at this time and is likely deemed reactive. She has no fever. Patient does have what appears to be possible small bowel obstruction. She has no vomiting minimal pain at this time. I did offer pain and nausea medications. Patient will require admission. I will make her n.p.o. and consult surgery. Patient was agreeable to this plan and is admitted in stable condition. I will cover her with a one-time dose of antibiotics just due to elevated white blood cell count Undiagnosed new problem with uncertain prognosis? @ -Yes Drug Therapy requiring intensive monitoring for toxicity (Heparin, Nitro, Insulin, Cardizem)? @ -No Were any procedures done? @ -No Diagnosis/symptom? @ -Acute abdominal pain, acute vomiting, possible small bowel obstruction, leukocytosis, elevated CK Acute, or Chronic, or Acute on Chronic? @ -Acute Uncomplicated (without systemic symptoms) or Complicated (systemic symptoms)? @ -Complicated Side effects of treatment? @ -No Exacerbation, Progression, or Severe Exacerbation? @ -No Poses a threat to life or bodily function? How? (Chest pain, USA, NM, pneumonia, PE, COPD, DKA, ARF, appy, cholecystitis, CVA, Diverticulitis, Homicidal, Suicidal, threat to staff... and all critical care pts) @ -No - Lab Data Result diagrams: 10/26/23 16:56 10/26/23 16:56 Lab Results 10/26/23 10/26/23 10/26/23 Range/Units 16:56 16:56 16:56 WBC 19.7 H (3.8-10.6) k/uL RBC 5.79 H (3.80-5.40) m/uL Hgb 17.2 H (11.4-16.0) gm/dL Hct 53.5 H (34.0-46.0) % MCV 92.4 (80.0-100.0) fL MCH 29.6 (25.0-35.0) pg MCHC 32.1 (31.0-37.0) g/dL RDW 13.6 (11.5-15.5) % Plt Count 223 (150-450) k/uL MPV 8.4 Neutrophils % 88 % Lymphocytes % 3 % Monocytes % 7 % Eosinophils % 1 % Basophils % 0 % Neutrophils # 17.3 H (1.3-7.7) k/uL Lymphocytes # 0.5 L (1.0-4.8) k/uL Monocytes # 1.4 H (0-1.0) k/uL Eosinophils # 0.2 (0-0.7) k/uL Basophils # 0.0 (0-0.2) k/uL Sodium 139 (137-145) mmol/L Potassium 4.6 (3.5-5.1) mmol/L Chloride 103 (98-107) mmol/L Carbon Dioxide 27 (22-30) mmol/L Anion Gap 9 mmol/L BUN 49 H (7-17) mg/dL Creatinine 0.94 (0.52-1.04) mg/dL Est GFR (CKD-EPI)AfAm 63 (>60 ml/min/1.73 sqM) Est GFR (CKD-EPI)NonAf 55 (>60 ml/min/1.73 sqM) Glucose 159 H (74-99) mg/dL Lactic Ac Sepsis Rflx Plasma Lactic Acid Bruno 2.8 H* (0.7-2.0) mmol/L Calcium 9.6 (8.4-10.2) mg/dL Total Bilirubin 1.3 (0.2-1.3) mg/dL AST 166 H (14-36) U/L ALT 52 H (4-34) U/L Alkaline Phosphatase 76 (38-126) U/L Creatine Kinase 4541 H* (30-135) U/L Total Protein 6.6 (6.3-8.2) g/dL Albumin 3.9 (3.5-5.0) g/dL 10/26/23 Range/Units 17:46 WBC (3.8-10.6) k/uL RBC (3.80-5.40) m/uL Hgb (11.4-16.0) gm/dL Hct (34.0-46.0) % MCV (80.0-100.0) fL MCH (25.0-35.0) pg MCHC (31.0-37.0) g/dL RDW (11.5-15.5) % Plt Count (150-450) k/uL MPV Neutrophils % % Lymphocytes % % Monocytes % % Eosinophils % % Basophils % % Neutrophils # (1.3-7.7) k/uL Lymphocytes # (1.0-4.8) k/uL Monocytes # (0-1.0) k/uL Eosinophils # (0-0.7) k/uL Basophils # (0-0.2) k/uL Sodium (137-145) mmol/L Potassium (3.5-5.1) mmol/L Chloride (98-107) mmol/L Carbon Dioxide (22-30) mmol/L Anion Gap mmol/L BUN (7-17) mg/dL Creatinine (0.52-1.04) mg/dL Est GFR (CKD-EPI)AfAm (>60 ml/min/1.73 sqM) Est GFR (CKD-EPI)NonAf (>60 ml/min/1.73 sqM) Glucose (74-99) mg/dL Lactic Ac Sepsis Rflx Y Plasma Lactic Acid Bruno (0.7-2.0) mmol/L Calcium (8.4-10.2) mg/dL Total Bilirubin (0.2-1.3) mg/dL AST (14-36) U/L ALT (4-34) U/L Alkaline Phosphatase (38-126) U/L Creatine Kinase (30-135) U/L Total Protein (6.3-8.2) g/dL Albumin (3.5-5.0) g/dL Disposition Clinical Impression: Abdominal pain, Lactic acidosis, Small bowel obstruction, Elevated creatine kinase, Leukocytosis Disposition: ADMITTED IP TO THIS [facility] Condition: Stable Is patient prescribed a controlled substance at d/c from ED?: No Time of Disposition: 18:45 Decision to Admit Reason: Admit from EC Decision Date: 10/26/23 Decision Time: 18:45
[2023-10-26] MEDS ORDERED: NALOXONE 0.4 MG/ML 1 ML VIAL IV PRN (18:47)
[2023-10-26] MEDS: MORPHINE SULFATE 2 MG/ML SYRINGE IVP ONE (20:17)
[2023-10-27] MEDS: metroNIDAZOLE-NS PMX 500 MG in SALINE 1 100ML.BAG IVPB SCH
[2023-10-27] MEDS: cefTRIAXone 1,000 MG VIAL (IM USE) IM STA
[2023-10-27] MEDS: METOPROLOL TARTRATE 25 MG TAB PO SCH (00:03)
[2023-10-27 06:31] LABS: Basophils # (A) 0.1 k/uL (0-0.2); Basophils % (A) 1 %; Eosinophils % (A) 0 %; HCT 54.2 % (34.0-46.0); HGB 16.4 gm/dL (11.4-16.0); Hypochromasia Moderate; Lymphocytes # (A) 0.5 k/uL (1.0-4.8); Lymphocytes % (A) 3 %; MCH 29.8 pg (25.0-35.0); MCHC 30.3 g/dL (31.0-37.0); Mean Platelet Volume 8.6; Monocytes # (A) 1.2 k/uL (0-1.0); Monocytes % (A) 8 %; Neutrophils % (A) 86 %; Platelet Count 151 k/uL (150-450); RBC 5.51 m/uL (3.80-5.40); RDW 13.6 % (11.5-15.5); WBC 15.2 k/uL (3.8-10.6)
[2023-10-27 06:45] LABS: MCV 98.3 fL (80.0-100.0)
[2023-10-27] MEDS: ATORVASTATIN 80 MG TAB PO SCH (08:21)
[2023-10-27] MEDS: FAMOTIDINE 20 MG TAB PO SCH (08:21)
--- NOTE | 2023-10-27 08:24 | XR ---
EXAMINATION TYPE: XR abdomen 2V DATE OF EXAM: 10/27/2023 COMPARISON: NONE HISTORY: Pain TECHNIQUE: One view abdominal series FINDINGS: The osseous structures are intact. The bowel gas pattern is nonspecific. A dilated air filled bowel loops are seen. The predominantly colonic. Vascular calcifications seen. Bibasilar atelectasis and ti ny effusion or pleural thickening. Contrast within the bladder. Hypertrophic arthropathy of the hip. Scoliosis and degenerative change o f the spine. Vascular calcifications noted. IMPRESSION: 1. There are dilated bowel loops in the abdomen. Ileus versus partial obstruction.
[2023-10-27 08:51] LABS: Calcium 9.1 mg/dL (8.7-10.3); Carbon Dioxide 21.8 mmol/L (21.6-31.8); Chloride 107 mmol/L (96-109); Glucose 153 mg/dL (70-110); Sodium 143 mmol/L (135-145)
--- NOTE | 2023-10-27 11:11 | P.GSCN ---
History of Present Illness Consult date: 10/27/23 History of present illness: CHIEF COMPLAINT: Abdominal pain HISTORY OF PRESENT ILLNESS: This is a 88-year-old female who was a transfer from [facility]. She reports that she had abdominal pain with nausea and vomiting for about 2 days. She reports that she has been dealing diarrhea for a month. She reports having no stool yesterday. She is now passing flatus. She does have a surgical history of cholecystectomy, hysterectomy and appendectomy. She denies any prior history of bowel obstruction. Patient reports that she had not been feeling well and laid down on the ground for about 12 hours. She was found by a plant maintenance technician. She had elevated white count and has been mildly tachycardic. Also had elevated CK level. She had a CT scan at [place] for concerns for small bowel obstruction and therefore transferred to [facility] for surgical evaluation. Patient is currently NPO. PAST MEDICAL HISTORY: See below PAST SURGICAL HISTORY: See below MEDICATIONS: See below ALLERGIES: See below SOCIAL HISTORY: No illicit drug use. REVIEW OF SYSTEMS: CONSTITUTIONAL: Denies fever or chills. HEENT: Denies blurred vision, vision changes, or eye pain. Denies hemoptysis CARDIOVASCULAR: Denies chest pain or pressure. RESPIRATORY: No shortness of breath. GASTROINTESTINAL: See HPI for pertinent findings HEMATOLOGIC: Denies bleeding disorders. GENITOURINARY: Denies any blood in urine or increased urinary frequency. SKIN: Denies pruitis. Denies rash. PHYSICAL EXAM: VITAL SIGNS: Reviewed GENERAL: Well-developed in no acute distress. HEENT: No sclera icterus. Extraocular movements grossly intact. Moist buccal m ucosa. Head is atraumatic, normocephalic. No nasal drainage. ABDOMEN: Soft. Obese. Nondistended. tender upper abdomen and along the right side of the abdomen near the umbilicus NEUROLOGIC: Alert and oriented. Cranial nerves II through XII grossly intact. LABORATORY DATA: WBC 19.7-15.2 Hgb 16.4 platelets 151 Sodium is 143 potassium is 5.0 creatinine 1.0 CPK 4541 Mildly elevated LFTs IMAGING: CT scan abdomen pelvis reports a dilated proximal small bowel loops containing increased air-fluid levels with 9 dilated distal loops in a pattern suspicious for small bowel obstruction. Other pathology including infectious/inflammatory pathology and atypical presentation of early ischemia can have a similar appearance. Right adnexal cysts. Moderate hiatal hernia with mural thickening distal thoracic esophagus. Abdominal x-ray from today reports dilated bowel loops in abdomen. Ileus versus partial obstruction. ASSESSMENT: 1. Partial bowel obstruction versus ileus. Patient is having flatus. 2. Rhabdomyolysis 3. Prior history of abdominal surgery PLAN: -Continue conservative management -Keep patient n.p.o. -Continue IV fluids -Continue supportive care -Increase activity level Physician Asset Administrator note has been reviewed by physician. Signing provider agrees with the documented findings, assessment, and plan of care. I have personally seen and examined the patient, reviewed the SEISMOGRAPH OPERATOR HELPER /PAs history, exam and MDM and agree with the assessment and plan as written. Based on total visit time, I have performed more than 50% of the visit. As above: Patient with upper abdominal pain. Had episodes of nausea and vomiting. Apparently she told Olga that she was having diarrhea however denied that when I asked her. Pain is epigastric. Still feels nauseated. She did pass flatus. CT scan and today's x-rays reviewed. Dilated proximal small bowel however no transition point is seen. You can see the bowel in the pelvis take a smaller appearance gradually. No inflammatory changes or free fluid noted. Given the patient's complaints of pain and nausea will place nasogastric tube to suction. Check urinalysis if not already performed. Past Medical History Past Medical History: CVA/TIA, Hyperlipidemia, Hypertension Additional Past Medical History / Comment(s): Right shoulder pain, trigger finger, allergic rhinitis,. CVA in 2013 x3 History of Any Multi-Drug Resistant Organisms: None Reported Past Surgical History: Appendectomy, Cholecystectomy, Hernia Repair, Hysterectomy, Tonsillectomy Additional Past Surgical History / Comment(s): left rotator cuff repair, carpal tunnel release Past Anesthesia/Blood Transfusion Reactions: No Reported Reaction Past Psychological History: No Psychological Hx Reported Past Alcohol Use History: None Reported Past Drug Use History: None Reported - Past Family History Father Family Medical History: CVA/TIA Additional Family Medical History / Comment(s): stated her he had 8 strokes Mother Family Medical History: Cancer Additional Family Medical History / Comment(s): from cancer Medications and Allergies Home Medications Medication Instructions Recorded Confirmed Type Atorvastatin [Lipitor] 80 mg PO DAILY #30 tab 06/10/18 10/26/23 Rx Metoprolol Tartrate [Lopressor] 25 mg PO BID #60 tab 06/10/18 10/26/23 Rx Spironolactone [Aldactone] 25 mg PO DAILY #30 tab 06/11/18 10/26/23 Rx Famotidine [Pepcid] 20 mg PO DAILY 10/26/23 10/26/23 History Allergies Allergy/AdvReac Type Severity Reaction Status Date / Time clindamycin Allergy Rash/Hives Verified 10/26/23 18:06 codeine Allergy Rash/Hives Verified 10/26/23 18:06 latex Allergy Rash/Hives Verified 10/26/23 18:06 Penicillins Allergy Rash/Hives Verified 10/26/23 18:06 Sulfa (Sulfonamide Allergy Rash/Hives Verified 10/26/23 18:06 Antibiotics) aspirin AdvReac Nausea & Verified 10/26/23 18:06 Vomiting Surgical - Exam Vital Signs Temp Pulse Resp BP Pulse Ox 97.7 F 98 18 160/98 94 L 10/26/23 16:33 10/26/23 16:33 10/26/23 16:33 10/26/23 16:33 10/26/23 16:33 Results - Labs 10/27/23 05:42 10/27/23 05:42 Abnormal Lab Results - Last 24 Hours (Table) 10/26/23 10/26/23 10/26/23 Range/Units 16:56 16:56 16:56 WBC 19.7 H (3.8-10.6) k/uL RBC 5.79 H (3.80-5.40) m/uL Hgb 17.2 H (11.4-16.0) gm/dL Hct 53.5 H (34.0-46.0) % MCHC (31.0-37.0) g/dL Neutrophils # 17.3 H (1.3-7.7) k/uL Lymphocytes # 0.5 L (1.0-4.8) k/uL Monocytes # 1.4 H (0-1.0) k/uL Anion Gap (4.00-12.00) mmol/L BUN 49 H (7-17) mg/dL Est GFR (CKD-EPI) (>=60) BUN/Creatinine Ratio (12.00-20.00) Ratio Glucose 159 H (74-99) mg/dL Plasma Lactic Acid Bruno 2.8 H* (0.7-2.0) mmol/L AST 166 H (14-36) U/L ALT 52 H (4-34) U/L Creatine Kinase 4541 H* (30-135) U/L 10/27/23 10/27/23 Range/Units 05:42 05:42 WBC 15.2 H (3.8-10.6) k/uL RBC 5.51 H (3.80-5.40) m/uL Hgb 16.4 H (11.4-16.0) gm/dL Hct 54.2 H (34.0-46.0) % MCHC 30.3 L (31.0-37.0) g/dL Neutrophils # 13.0 H (1.3-7.7) k/uL Lymphocytes # 0.5 L (1.0-4.8) k/uL Monocytes # 1.2 H (0-1.0) k/uL Anion Gap 14.20 H (4.00-12.00) mmol/L BUN 51.0 H (7-17) mg/dL Est GFR (CKD-EPI) 55 L (>=60) BUN/Creatinine Ratio 51.00 H (12.00-20.00) Ratio Glucose 153 H (74-99) mg/dL Plasma Lactic Acid Bruno (0.7-2.0) mmol/L AST (14-36) U/L ALT (4-34) U/L Creatine Kinase (30-135) U/L Diabetes panel 10/26/23 10/27/23 Range/Units 16:56 05:42 Sodium 139 143 (137-145) mmol/L Potassium 4.6 5.0 (3.5-5.1) mmol/L Chloride 103 107 (98-107) mmol/L Carbon Dioxide 27 21.8 (22-30) mmol/L BUN 49 H 51.0 H (7-17) mg/dL Creatinine 0.94 1.0 (0.52-1.04) mg/dL Glucose 159 H 153 H (74-99) mg/dL Calcium 9.6 9.1 (8.4-10.2) mg/dL AST 166 H (14-36) U/L ALT 52 H (4-34) U/L Alkaline Phosphatase 76 (38-126) U/L Total Protein 6.6 (6.3-8.2) g/dL Albumin 3.9 (3.5-5.0) g/dL Calcium panel 10/26/23 10/27/23 Range/Units 16:56 05:42 Calcium 9.6 9.1 (8.4-10.2) mg/dL Albumin 3.9 (3.5-5.0) g/dL Pituitary panel 10/26/23 10/27/23 Range/Units 16:56 05:42 Sodium 139 143 (137-145) mmol/L Potassium 4.6 5.0 (3.5-5.1) mmol/L Chloride 103 107 (98-107) mmol/L Carbon Dioxide 27 21.8 (22-30) mmol/L BUN 49 H 51.0 H (7-17) mg/dL Creatinine 0.94 1.0 (0.52-1.04) mg/dL Glucose 159 H 153 H (74-99) mg/dL Calcium 9.6 9.1 (8.4-10.2) mg/dL Adrenal panel 10/26/23 10/27/23 Range/Units 16:56 05:42 Sodium 139 143 (137-145) mmol/L Potassium 4.6 5.0 (3.5-5.1) mmol/L Chloride 103 107 (98-107) mmol/L Carbon Dioxide 27 21.8 (22-30) mmol/L BUN 49 H 51.0 H (7-17) mg/dL Creatinine 0.94 1.0 (0.52-1.04) mg/dL Glucose 159 H 153 H (74-99) mg/dL Calcium 9.6 9.1 (8.4-10.2) mg/dL Total Bilirubin 1.3 (0.2-1.3) mg/dL AST 166 H (14-36) U/L ALT 52 H (4-34) U/L Alkaline Phosphatase 76 (38-126) U/L Total Protein 6.6 (6.3-8.2) g/dL Albumin 3.9 (3.5-5.0) g/dL
[2023-10-27 13:06] LABS: INR 1.1 (<1.2); Prothrombin Time 11.6 sec (10.0-12.5)
[2023-10-27 14:41] LABS: Appearance,Urine Clear (Clear); Bilirubin,Urine Negative (Negative); Blood,Urine Moderate (Negative); Color,Urine Yellow; Glucose,Urine (UA) 1+ (Negative); Ketones,Urine 1+ (Negative); Leukocyte Esterase,Urine Negative (Negative); Mucus,Urine Few /hpf; Nitrite,Urine Negative (Negative); PH, Urine 6.5 (5.0-8.0); Protein,Urine 2+ (Negative); RBC,Urine 31 /hpf (0-5); Squamous Epithelial Cell,Urine 7 /hpf (0-4); Urobilinogen,Urine <2.0 mg/dL (<2.0)
[2023-10-27 14:43] LABS: Specific Gravity,Urine >1.050 (1.001-1.035)
--- NOTE | 2023-10-27 15:17 | P.HPIM ---
History of Present Illness H&P Date: 10/27/23 Chief Complaint: Abdominal pain 88-year-old female presents emergency department as a transfer from [place]. Patient reports that she was not feeling well yesterday and therefore she laid down on her kitchen floor. She was found today by a maintenance welder. She was reported that she was having abdominal pain, nausea and vomiting. Patient does have some bruising noted to the left side of her face and left shoulder as she was stuck on the ground for 12 hours. Laboratory studies were completed as well as imaging. Patient had no traumatic injuries however she did have an elevated CK, lactic of 5 and was found to have a small bowel obstruction. No history of small bowel obstructions. She is status post cholecystectomy and hysterectomy. Patient received 4 of Zofran and a liter of fluid and feels improved. No other alleviating, precipitating modifying factors Blood work completed in ED reveals a WBC of 19.7, hemoglobin of 17.2 and platelet count of 223, sodium 139, potassium 4.6, BUNs/creatinine 49/0.94 and blood glucose of 159 Review of Systems REVIEW OF SYSTEMS: CONSTITUTIONAL: No fever, no malaise, no fatigue. HEENT: No recent visual problems or hearing problems. Denied any sore throat. CARDIOVASCULAR: No chest pain, orthopnea, PND, no palpitations, no syncope. PULMONARY: No shortness of breath, no cough, no hemoptysis. GASTROINTESTINAL: No diarrhea, no nausea, no vomiting, no abdominal pain. NEUROLOGICAL: No headaches, no weakness, no numbness. HEMATOLOGICAL: Denies any bleeding or petechiae. GENITOURINARY: Denies any burning micturition, frequency, or urgency. MUSCULOSKELETAL/RHEUMATOLOGICAL: Denies any joint pain, swelling, or any muscle pain. ENDOCRINE: Denies any polyuria or polydipsia. The rest of the 14-point review of systems is negative. Past Medical History Past Medical History: CVA/TIA, Hyperlipidemia, Hypertension Additional Past Medical History / Comment(s): Right shoulder pain, trigger finger, allergic rhinitis,. CVA in 2013 x3 History of Any Multi-Drug Resistant Organisms: None Reported Past Surgical History: Appendectomy, Cholecystectomy, Hernia Repair, Hysterectomy, Tonsillectomy Additional Past Surgical History / Comment(s): left rotator cuff repair, carpal tunnel release Past Anesthesia/Blood Transfusion Reactions: No Reported Reaction Past Psychological History: No Psychological Hx Reported Past Alcohol Use History: None Reported Past Drug Use History: None Reported - Past Family History Father Family Medical History: CVA/TIA Additional Family Medical History / Comment(s): stated her he had 8 strokes Mother Family Medical History: Cancer Additional Family Medical History / Comment(s): from cancer Medications and Allergies Home Medications Medication Instructions Recorded Confirmed Type Atorvastatin [Lipitor] 80 mg PO DAILY #30 tab 06/10/18 10/26/23 Rx Metoprolol Tartrate [Lopressor] 25 mg PO BID #60 tab 06/10/18 10/26/23 Rx Spironolactone [Aldactone] 25 mg PO DAILY #30 tab 06/11/18 10/26/23 Rx Famotidine [Pepcid] 20 mg PO DAILY 10/26/23 10/26/23 History Allergies Allergy/AdvReac Type Severity Reaction Status Date / Time clindamycin Allergy Rash/Hives Verified 10/26/23 18:06 codeine Allergy Rash/Hives Verified 10/26/23 18:06 latex Allergy Rash/Hives Verified 10/26/23 18:06 Penicillins Allergy Rash/Hives Verified 10/26/23 18:06 Sulfa (Sulfonamide Allergy Rash/Hives Verified 10/26/23 18:06 Antibiotics) aspirin AdvReac Nausea & Verified 10/26/23 18:06 Vomiting Physical Exam Vitals: Vital Signs Temp Pulse Pulse Resp BP BP Pulse Ox 10/27/23 07:25 97.7 F 76 16 166/84 97 10/27/23 02:00 97.7 F 85 16 144/88 91 L 10/26/23 20:44 108 H 25 H 145/86 95 10/26/23 20:00 98.2 F 113 H 16 160/92 90 L 10/26/23 19:10 98 28 H 173/86 96 10/26/23 18:30 100 16 153/98 94 L 10/26/23 18:00 98 18 169/93 96 10/26/23 17:30 98 20 173/93 95 10/26/23 17:00 105 H 20 156/96 94 L 10/26/23 16:45 101 H 18 160/98 96 10/26/23 16:39 104 H 85 L 10/26/23 16:33 97.7 F 98 18 160/98 94 L Intake and Output 10/26/23 10/27/23 10/27/23 22:59 06:59 14:59 Intake Total 0 Balance 0 Intake: Oral 0 Other: Voiding Method External Catheter External Catheter Weight 84 kg General appearance: alert, in no apparent distress Head exam: Present: other (bruising around the left eye) Eye exam: Present: normal appearance, PERRL, EOMI. Absent: scleral icterus, conjunctival injection, periorbital swelling ENT exam: Present: normal exam, mucous membranes moist Respiratory exam: Present: normal lung sounds bilaterally. Absent: respiratory distress, wheezes, rales, rhonchi, stridor Cardiovascular Exam: Present: regular rate, normal rhythm, normal heart sounds. Absent: systolic murmur, diastolic murmur, rubs, gallop, clicks GI/Abdominal exam: Present: tenderness (Generalized). Absent: guarding, rebound, rigid Extremities exam: Present: other (Some bruising to the left anterior shoulder) Neurological exam: Present: alert, oriented X3, CN II-XII intact Psychiatric exam: Present: normal affect, normal mood Results CBC & Chem 7: 10/27/23 05:42 10/27/23 05:42 Labs: Abnormal Lab Results - Last 24 Hours (Table) 10/26/23 10/26/23 10/26/23 Range/Units 16:56 16:56 16:56 WBC 19.7 H (3.8-10.6) k/uL RBC 5.79 H (3.80-5.40) m/uL Hgb 17.2 H (11.4-16.0) gm/dL Hct 53.5 H (34.0-46.0) % MCHC (31.0-37.0) g/dL Neutrophils # 17.3 H (1.3-7.7) k/uL Lymphocytes # 0.5 L (1.0-4.8) k/uL Monocytes # 1.4 H (0-1.0) k/uL Anion Gap (4.00-12.00) mmol/L BUN 49 H (7-17) mg/dL Est GFR (CKD-EPI) (>=60) BUN/Creatinine Ratio (12.00-20.00) Ratio Glucose 159 H (74-99) mg/dL Plasma Lactic Acid Bruno 2.8 H* (0.7-2.0) mmol/L AST 166 H (14-36) U/L ALT 52 H (4-34) U/L Creatine Kinase 4541 H* (30-135) U/L 10/27/23 10/27/23 Range/Units 05:42 05:42 WBC 15.2 H (3.8-10.6) k/uL RBC 5.51 H (3.80-5.40) m/uL Hgb 16.4 H (11.4-16.0) gm/dL Hct 54.2 H (34.0-46.0) % MCHC 30.3 L (31.0-37.0) g/dL Neutrophils # 13.0 H (1.3-7.7) k/uL Lymphocytes # 0.5 L (1.0-4.8) k/uL Monocytes # 1.2 H (0-1.0) k/uL Anion Gap 14.20 H (4.00-12.00) mmol/L BUN 51.0 H (7-17) mg/dL Est GFR (CKD-EPI) 55 L (>=60) BUN/Creatinine Ratio 51.00 H (12.00-20.00) Ratio Glucose 153 H (74-99) mg/dL Plasma Lactic Acid Bruno (0.7-2.0) mmol/L AST (14-36) U/L ALT (4-34) U/L Creatine Kinase (30-135) U/L Thrombosis Risk Factor Assmnt - Choose All That Apply Any of the Below Risk Factors Present?: Yes Each Factor Represents 1 point: Obesity (BMI >25) Other Risk Factors: Yes Each Risk Factor Represents 3 Points: Age 75 years or older Other congenital or acquired thrombophilia - If yes, enter type in comment: No Thrombosis Risk Factor Assessment Total Risk Factor Score: 4 Thrombosis Risk Factor Assessment Level: Moderate Risk Assessment and Plan Assessment: 1. Partial small bowel obstruction versus ileus --Patient has passing flatus; remains n.p.o. -General surgery on board and recommending to continue with conservative management; patient is currently n.p.o. and remains on IV fluids -- Increase activity 2. Rhabdomyolysis; CK is elevated at 4541; BUN elevated at 49 Patient remains on IV fluids- ; we will monitor CPK and renal function closely 3. Hypertension; metoprolol 25 mg twice daily; Aldactone 25 mg daily 4. Hyperlipidemia; Lipitor 80 mg p.o. nightly 5. Marked leukocytosis; with elevated lactic acid levels; no clear source of infection; patient has been placed on IV Rocephin in ED along with Flagyl; will continue with current antibiotics and consult ID for further evaluation and recommendations DVT prophylaxis; SCDs CODE STATUS; full code
--- NOTE | 2023-10-27 16:13 | P.CONS ---
History of Present Illness - Reason for Consult Consult date: 10/27/23 Leukocytosis/sepsis Requesting physician: Mandie Snider - Chief Complaint Intractable vomiting x 1 day - History of Present Illness Patient is a 88-year-old female with a past medical history significant for CVA TIA hypertension hyperlipidemia patient initially presented to [facility] this patient noted an episode of intractable nausea and vomiting x 1 day now some abdominal discomfort patient mention she is lying down as she did not want to fall down and broke bones patient was found by cnc maintenance technician called EMS and the patient was taken to the ER at [facility] patient did have workup done at that facility including a CT of abdominal pelvis which did shows evidence of dilated proximal small bowel concerning for ileus for the patient has been transferred to [facility] for further evaluation on presentation to this facility patient was afebrile and no fever have recorded subsequently patient did have some tachycardia on admission subsequently resolved patient was not hypotensive or hypoxic and no need for supplemental oxygen patient did have white count at 19.7 with a left shift creatinine 0.94 lactic acid 2.8 liver enzymes mildly elevated CKs were elevated urine has been negative because of her multiple antibiotic allergies infectious disease was consulted for management of antibiotics and leukocytosis patient currently to have the NG and denies any further vomiting abdominal discomfort has decreased denies any bowel movement no chest pain shortness of breath or cough Review of Systems Positive point and negatives has been mentioned in the HPI, complete review of systems was performed and all other systems are negative Past Medical History Past Medical History: CVA/TIA, Hyperlipidemia, Hypertension Additional Past Medical History / Comment(s): Right shoulder pain, trigger finger, allergic rhinitis,. CVA in 2012 x3 History of Any Multi-Drug Resistant Organisms: None Reported Past Surgical History: Appendectomy, Cholecystectomy, Hernia Repair, Hystere ctomy, Tonsillectomy Additional Past Surgical History / Comment(s): left rotator cuff repair, carpal tunnel release Past Anesthesia/Blood Transfusion Reactions: No Reported Reaction Past Psychological History: No Psychological Hx Reported Past Alcohol Use History: None Reported Past Drug Use History: None Reported - Past Family History Father Family Medical History: CVA/TIA Additional Family Medical History / Comment(s): stated her he had 8 strokes Mother Family Medical History: Cancer Additional Family Medical History / Comment(s): from cancer Medications and Allergies Home Medications Medication Instructions Recorded Confirmed Type Atorvastatin [Lipitor] 80 mg PO DAILY #30 tab 06/10/18 10/26/23 Rx Metoprolol Tartrate [Lopressor] 25 mg PO BID #60 tab 06/10/18 10/26/23 Rx Spironolactone [Aldactone] 25 mg PO DAILY #30 tab 06/11/18 10/26/23 Rx Famotidine [Pepcid] 20 mg PO DAILY 10/26/23 10/26/23 History Allergies Allergy/AdvReac Type Severity Reaction Status Date / Time clindamycin Allergy Rash/Hives Verified 10/26/23 18:06 codeine Allergy Rash/Hives Verified 10/26/23 18:06 latex Allergy Rash/Hives Verified 10/26/23 18:06 Penicillins Allergy Rash/Hives Verified 10/26/23 18:06 Sulfa (Sulfonamide Allergy Rash/Hives Verified 10/26/23 18:06 Antibiotics) aspirin AdvReac Nausea & Verified 10/26/23 18:06 Vomiting Physical Exam Vitals: Vital Signs Temp Pulse Pulse Resp BP BP Pulse Ox 10/27/23 07:25 97.7 F 76 16 166/84 97 10/27/23 02:00 97.7 F 85 16 144/88 91 L 10/26/23 20:44 108 H 25 H 145/86 95 10/26/23 20:00 98.2 F 113 H 16 160/92 90 L 10/26/23 19:10 98 28 H 173/86 96 10/26/23 18:30 100 16 153/98 94 L 10/26/23 18:00 98 18 169/93 96 10/26/23 17:30 98 20 173/93 95 10/26/23 17:00 105 H 20 156/96 94 L 10/26/23 16:45 101 H 18 160/98 96 10/26/23 16:39 104 H 85 L 10/26/23 16:33 97.7 F 98 18 160/98 94 L Intake and Output 10/26/23 10/27/23 10/27/23 22:59 06:59 14:59 Intake Total 0 Balance 0 Intake: Oral 0 Other: Voiding Method External Catheter External Catheter Weight 84 kg GENERAL DESCRIPTION: Elderly female lying in bed, no distress. No tachypnea or accessory muscle of respiration use. HEENT: Shows Pallor , no scleral icterus. Oral mucous membrane is dry. NG to the left nostril NECK: Trachea central, no thyromegaly. LUNGS: Unlabored breathing. Clear to auscultation anteriorly. No wheeze or crackle. HEART: S1, S2, regular rate and rhythm. No loud murmur ABDOMEN: Soft, mild distention no guarding EXTREMITIES: No edema of feet. SKIN: No rash, no masses palpable. NEUROLOGICAL: The patient is awake, alert, oriented x3, mood and affect normal. Results CBC & Chem 7: 10/27/23 05:42 10/27/23 05:42 Labs: Abnormal Lab Results - Last 24 Hours (Table) 10/26/23 10/26/23 10/26/23 Range/Units 16:56 16:56 16:56 WBC 19.7 H (3.8-10.6) k/uL RBC 5.79 H (3.80-5.40) m/uL Hgb 17.2 H (11.4-16.0) gm/dL Hct 53.5 H (34.0-46.0) % MCHC (31.0-37.0) g/dL Neutrophils # 17.3 H (1.3-7.7) k/uL Lymphocytes # 0.5 L (1.0-4.8) k/uL Monocytes # 1.4 H (0-1.0) k/uL Anion Gap (4.00-12.00) mmol/L BUN 49 H (7-17) mg/dL Est GFR (CKD-EPI) (>=60) BUN/Creatinine Ratio (12.00-20.00) Ratio Glucose 159 H (74-99) mg/dL Plasma Lactic Acid Bruno 2.8 H* (0.7-2.0) mmol/L AST 166 H (14-36) U/L ALT 52 H (4-34) U/L Creatine Kinase 4541 H* (30-135) U/L 10/27/23 10/27/23 Range/Units 05:42 05:42 WBC 15.2 H (3.8-10.6) k/uL RBC 5.51 H (3.80-5.40) m/uL Hgb 16.4 H (11.4-16.0) gm/dL Hct 54.2 H (34.0-46.0) % MCHC 30.3 L (31.0-37.0) g/dL Neutrophils # 13.0 H (1.3-7.7) k/uL Lymphocytes # 0.5 L (1.0-4.8) k/uL Monocytes # 1.2 H (0-1.0) k/uL Anion Gap 14.20 H (4.00-12.00) mmol/L BUN 51.0 H (7-17) mg/dL Est GFR (CKD-EPI) 55 L (>=60) BUN/Creatinine Ratio 51.00 H (12.00-20.00) Ratio Glucose 153 H (74-99) mg/dL Plasma Lactic Acid Bruno (0.7-2.0) mmol/L AST (14-36) U/L ALT (4-34) U/L Creatine Kinase (30-135) U/L Assessment and Plan (1) Allergy to multiple antibiotics Current Visit: Yes Status: Acute Code(s): Z88.1 - ALLERGY STATUS TO OTHER ANTIBIOTIC AGENTS SNOMED Code(s): 354078297 (2) Leukocytosis Current Visit: Yes Status: Acute Code(s): D72.829 - ELEVATED WHITE BLOOD CELL COUNT, UNSPECIFIED SNOMED Code(s): 823826905 Plan: 1patient with a leukocytosis likely related to abdominal source in this patient who did have evidence of ileus did not mention any evidence of perforation or abscess on the CT and will need to cover for the enteric gram-negative both aerobes and anaerobes to be the likely pathogen 2patient with multiple antibiotic ALLERGIES that would limit the number of antibiotic safe to use, however patient mention she did have taken amoxicillin clinical doubt true penicillin allergy 3I will start the patient on Rocephin 2 g daily continue with the Flagyl We will follow on clinical condition and cultures to further adjust medication if needed Thank you for this consultation we will follow the patient along with you Dictation was produced using [employer] dictation software. please excuse any grammatical, word or spelling errors.
[2023-10-27] MEDS: MORPHINE SULFATE 2 MG/ML SYRINGE IVP PRN (16:57)
[2023-10-28] MEDS: MORPHINE SULFATE 2 MG/ML SYRINGE IVP STA (05:00)
[2023-10-28] MEDS: ASPIRIN 300 MG SUPP RECTAL STA (05:04)
[2023-10-28] MEDS: NITROGLYCERIN SL TABS 0.4 MG TAB SUBLINGUAL PRN (05:08)
[2023-10-28 06:28] LABS: Basophils % (A) 0 %; Eosinophils # (A) 0.1 k/uL (0-0.7); Eosinophils % (A) 1 %; HCT 44.7 % (34.0-46.0); HGB 14.1 gm/dL (11.4-16.0); Lymphocytes # (A) 0.8 k/uL (1.0-4.8); Lymphocytes % (A) 7 %; MCH 29.9 pg (25.0-35.0); MCHC 31.4 g/dL (31.0-37.0); MCV 95.1 fL (80.0-100.0); Mean Platelet Volume 8.2; Monocytes % (A) 9 %; Neutrophils # (A) 8.6 k/uL (1.3-7.7); Neutrophils % (A) 81 %; Platelet Count 165 k/uL (150-450); RDW 13.4 % (11.5-15.5); WBC 10.7 k/uL (3.8-10.6)
[2023-10-28 06:39] LABS: African American GFR (CKD) 82 (>60 ml/min/1.73 sqM); Anion Gap 8 mmol/L; Blood Urea Nitrogen 49 mg/dL (7-17); Calcium 8.6 mg/dL (8.4-10.2); Carbon Dioxide 23 mmol/L (22-30); Chloride 113 mmol/L (98-107); Creatine Kinase 826 U/L (30-135); Glucose 113 mg/dL (74-99); Non-African American GFR(CKD) 71 (>60 ml/min/1.73 sqM); Potassium 4.5 mmol/L (3.5-5.1); Sodium 144 mmol/L (137-145)
[2023-10-28] MEDS ORDERED: ZINC OXIDE PASTE (Z-GUARD) 1 APPLIC TOPICAL PRN (10:26)
--- NOTE | 2023-10-28 11:59 | P.CRDCN ---
History of Present Illness Consult date: 10/28/23 Consult reason: chest pain History of present illness: The patient is an 88-year-old female who follows in the office with Dr. Mata. She presented to the emergency room with abdominal discomfort, nausea, and vomiting. The patient states that this started several days ago and she laid down on the floor, but was not able to get back up. She believes she was on the ground for approximately 1 day. The patient denies any syncope or fall. No traumatic injuries, but she did have elevated CK and lactic acidosis. Abdominal ultrasound showed ileus versus small bowel obstruction. Cardiology has been consulted as the patient was reporting some epigastric discomfort. DIAGNOSTICS: EKG shows sinus mechanism without ST or T wave abnormalities Abdominal x-ray shows dilated bowel loops, ileus versus partial obstruction Lab data: WBC 10.7, hematocrit 44.7, hemoglobin 14.1, platelet 165, sodium 144, potassium 4.5, BUN failure 29, creatinine 0.76, CK8 126, troponin 0.02, 0.02 REVIEW OF SYSTEMS: No fever or chills. No cough or expectoration. No diaphoresis. Patient denies headache, dizziness, blurred vision, double vision. Positive for stomach discomfort. No nausea, vomiting. No hematochezia. No hematemesis. Denies any black stools or blood in his stools. Denies dysuria or hematuria. No muscle weakness or numbness. No chest pain or pressure. No orthopnea PHYSICAL EXAMINATION: This is a 88-year-old female in no apparent distress at the time of my examination. HEENT: Head is atraumatic, normocephalic. Pupils are equal, round. There is no jugular venous distention. No carotid bruit is heard. CHEST EXAMINATION: Lungs are clear to auscultation. No chest wall tenderness is noted on palpation or with deep breathing. HEART EXAMINATION: Heart regular rate and rhythm. S1, S2 heard. Soft systolic murmur. No gallops or rub. ABDOMEN: Soft, nontender. Bowel sounds are heard. No organomegaly noted. EXTREMITIES: 2+ peripheral pulses with no evidence of peripheral edema and no calf tenderness noted. NEUROLOGIC EXAMINATION: Patient is awake, alert and oriented x3. FINAL ASSESSMENT AND PLAN: Chest discomfort, likely epigastric Small bowel obstruction History of coronary artery disease History of cardiomyopathy History hypertension PLAN: Clonidine patch for hypertension until patient is able to tolerate orals Echocardiogram and Doppler study Further recommendations to be based on clinical course I am dictating on behalf of Dr Tank Nova's history/physical and assessment/plan. Past Medical History Past Medical History: CVA/TIA, Hyperlipidemia, Hypertension Additional Past Medical History / Comment(s): Right shoulder pain, trigger finger, allergic rhinitis,. CVA in 2013 x3 History of Any Multi-Drug Resistant Organisms: None Reported Past Surgical History: Appendectomy, Cholecystectomy, Hernia Repair, Hysterectomy, Tonsillectomy Additional Past Surgical History / Comment(s): left rotator cuff repair, carpal tunnel release Past Anesthesia/Blood Transfusion Reactions: No Reported Reaction Past Psychological History: No Psychological Hx Reported Past Alcohol Use History: None Reported Past Drug Use History: None Reported - Past Family History Father Family Medical History: CVA/TIA Additional Family Medical History / Comment(s): stated her he had 8 strokes Mother Family Medical History: Cancer Additional Family Medical History / Comment(s): from cancer Medications and Allergies Home Medications Medication Instructions Recorded Confirmed Type Atorvastatin [Lipitor] 80 mg PO DAILY #30 tab 06/10/18 10/26/23 Rx Metoprolol Tartrate [Lopressor] 25 mg PO BID #60 tab 06/10/18 10/26/23 Rx Spironolactone [Aldactone] 25 mg PO DAILY #30 tab 06/11/18 10/26/23 Rx Famotidine [Pepcid] 20 mg PO DAILY 10/26/23 10/26/23 History Allergies Allergy/AdvReac Type Severity Reaction Status Date / Time clindamycin Allergy Rash/Hives Verified 10/26/23 18:06 codeine Allergy Rash/Hives Verified 10/26/23 18:06 latex Allergy Rash/Hives Verified 10/26/23 18:06 Penicillins Allergy Rash/Hives Verified 10/26/23 18:06 Sulfa (Sulfonamide Allergy Rash/Hives Verified 10/26/23 18:06 Antibiotics) aspirin AdvReac Nausea & Verified 10/26/23 18:06 Vomiting Physical Exam Vitals: Vital Signs Temp Pulse Resp BP Pulse Ox 10/28/23 08:04 97.7 F 54 L 20 181/75 94 L 10/28/23 08:00 54 L 20 10/28/23 03:47 59 L 20 157/82 93 L 10/28/23 03:35 58 L 166/77 10/28/23 03:00 63 173/71 10/28/23 01:45 97.0 F L 61 18 181/74 92 L 10/27/23 21:10 18 10/27/23 19:49 97.7 F 71 22 142/78 92 L 10/27/23 15:52 97.8 F 82 18 150/87 91 L 10/27/23 13:49 98.2 F 70 16 170/70 95 Intake and Output 10/27/23 10/28/23 10/28/23 22:59 06:59 14:59 Output Total 200 200 Balance -200 -200 Output: Gastric Drainage 200 Urine 200 Other: Voiding Method Diaper Diaper Incontinent Incontinent # Voids 1 1 Results 10/28/23 05:51 10/28/23 05:51 Cardiac Enzymes 10/28/23 Range/Units 05:51 Troponin I 0.024 (0.000-0.034) ng/mL Coagulation 10/27/23 Range/Units 12:49 PT 11.6 (10.0-12.5) sec CBC 10/28/23 Range/Units 05:51 WBC 10.7 H (3.8-10.6) k/uL RBC 4.70 (3.80-5.40) m/uL Hgb 14.1 (11.4-16.0) gm/dL Hct 44.7 (34.0-46.0) % Plt Count 165 (150-450) k/uL Comprehensive Metabolic Panel 10/28/23 Range/Units 05:51 Sodium 144 (137-145) mmol/L Potassium 4.5 (3.5-5.1) mmol/L Chloride 113 H (98-107) mmol/L Carbon Dioxide 23 (22-30) mmol/L BUN 49 H (7-17) mg/dL Creatinine 0.76 (0.52-1.04) mg/dL Glucose 113 H (74-99) mg/dL Calcium 8.6 (8.4-10.2) mg/dL Current Medications Generic Name Dose Route Start Last Admin Trade Name Freq PRN Reason Stop Dose Admin Atorvastatin Calcium 80 mg 10/27/23 09:00 10/28/23 08:29 Atorvastatin 80 Mg Tab PO 80 mg DAILY GERALD Administration Famotidine 20 mg 10/27/23 09:00 10/28/23 09:30 Famotidine 20 Mg Tab PO 20 mg DAILY GERALD Administration Sodium Chloride 1,000 mls @ 75 mls/hr 10/26/23 17:00 10/28/23 08:30 Saline 0.9% IV 75 mls/hr .[id number] GERALD Administration Metronidazole 500 mg/ IV 100 mls @ 100 mls/hr 10/27/23 00:00 10/28/23 08:30 Solution IVPB 100 mls/hr Q8HR [facility] Administration Protocol Ceftriaxone Sodium 2 gm/ 50 mls @ 100 mls/hr 10/27/23 12:45 10/28/23 09:30 Sodium Chloride IVPB 100 mls/hr Q24HR [facility] Administration Protocol Metoprolol Tartrate 25 mg 10/26/23 22:45 10/28/23 08:28 Metoprolol Tartrate 25 Mg Tab PO 25 mg BID GERALD Administration Morphine Sulfate 2 mg 10/26/23 22:33 10/28/23 02:00 Morphine Sulfate 2 Mg/Ml Syringe IVP 2 mg Q4HR PRN Administration Pain Naloxone HCl 0.2 mg 10/26/23 18:47 Naloxone 0.4 Mg/Ml 1 Ml Vial IV Q2M PRN Opioid Reversal Nitroglycerin 0.4 mg 10/28/23 04:40 10/28/23 05:20 Nitroglycerin Sl Tabs 0.4 Mg Tab SUBLINGUAL 0.4 mg Q5M PRN Administration Chest Pain Nystatin 1 applic 10/28/23 21:00 Nystatin 100,000 Unit/Gm Powd 15 Gm TOPICAL BID [facility] Protocol Ondansetron HCl 4 mg 10/26/23 19:23 Ondansetron 4 Mg/2 Ml Vial IVP Q4HR PRN Nausea Petrolatum 1 applic 10/28/23 10:26 Zinc Oxide Paste (Z-Guard) 1 Applic TOPICAL BID PRN [facility] Protocol Intake and Output 10/27/23 10/28/23 10/28/23 22:59 06:59 14:59 Output Total 200 200 Balance -200 -200 Output: Gastric Drainage 200 Urine 200 Other: Voiding Method Diaper Diaper Incontinent Incontinent # Voids 1 1 10/28/23 05:51 10/28/23 05:51
[2023-10-28] MEDS: cloNIDine 0.1 MG/24HR PATCH TRANSDERM SCH (13:16)
--- NOTE | 2023-10-28 18:22 | P.PN ---
Subjective Patient seen and evaluated at bedside. No new complaints, no overnight events Objective - Vital Signs Vital signs: Vital Signs Temp 97.4 F L 10/28/23 12:29 Pulse 48 L 10/28/23 13:20 Resp 24 10/28/23 12:29 BP 165/69 10/28/23 13:20 Pulse Ox 90 L 10/28/23 12:29 FiO2 Intake & Output 10/27/23 10/28/23 10/28/23 18:59 06:59 18:59 Intake Total 0 Output Total 200 200 Balance -200 -200 Intake: Oral 0 Output: Gastric Drainage 200 Urine 200 Other: Voiding Method External Catheter Diaper Diaper Incontinent Incontinent # Voids 2 1 1 # Bowel Movements 1 - Exam gen: nad cv: rrr pul: non labored breathing abd: soft, distended, no guarding or rebound tenderness nasogastric tube: 200cc this am, feculent output - Labs CBC & Chem 7: 10/28/23 05:51 10/28/23 05:51 Labs: Abnormal Lab Results - Last 24 Hours (Table) 10/28/23 10/28/23 Range/Units 05:51 05:51 WBC 10.7 H (3.8-10.6) k/uL Neutrophils # 8.6 H (1.3-7.7) k/uL Lymphocytes # 0.8 L (1.0-4.8) k/uL Chloride 113 H (98-107) mmol/L BUN 49 H (7-17) mg/dL Glucose 113 H (74-99) mg/dL Creatine Kinase 826 H (30-135) U/L Assessment and Plan Assessment: 88 yo female w/ Partial bowel obstruction versus ileus -continue ngt -monitor bowel function -monitor abdominal exam Time with Patient: Less than 30
--- NOTE | 2023-10-28 18:36 | P.PN ---
Subjective Progress Note Date: 10/28/23 88-year-old female presents emergency department as a transfer from [place]. Patient reports that she was not feeling well yesterday and therefore she laid down on her kitchen floor. She was found today by a lead maintenance technician. She was reported that she was having abdominal pain, nausea and vomiting. Patient does have some bruising noted to the left side of her face and left shoulder as she was stuck on the ground for 12 hours. Laboratory studies were completed as well as imaging. Patient had no traumatic injuries however she did have an elevated CK, lactic of 5 and was found to have a small bowel obstruction. No history of small bowel obstructions. She is status post cholecystectomy and hysterectomy. Patient received 4 of Zofran and a liter of fluid and feels improved. No other alleviating, precipitating modifying factors Blood work completed in ED reveals a WBC of 19.7, hemoglobin of 17.2 and platelet count of 223, sodium 139, potassium 4.6, BUNs/creatinine 49/0.94 and blood glucose of 159 Objective - Vital Signs Vital signs: Vital Signs Temp 97.7 F 10/28/23 08:04 Pulse 54 L 10/28/23 08:04 Resp 20 10/28/23 08:04 BP 181/75 10/28/23 08:04 Pulse Ox 94 L 10/28/23 08:04 FiO2 Intake & Output 10/27/23 10/28/23 10/28/23 18:59 06:59 18:59 Output Total 200 200 Balance -200 -200 Output: Gastric Drainage 200 Urine 200 Other: Voiding Method External Catheter Diaper Diaper Incontinent Incontinent # Voids 2 1 - Exam General appearance: alert, in no apparent distress Head exam: Present: other (bruising around the left eye) Eye exam: Present: normal appearance, PERRL, EOMI. Absent: scleral icterus, con junctival injection, periorbital swelling ENT exam: Present: normal exam, mucous membranes moist Respiratory exam: Present: normal lung sounds bilaterally. Absent: respiratory distress, wheezes, rales, rhonchi, stridor Cardiovascular Exam: Present: regular rate, normal rhythm, normal heart sounds. Absent: systolic murmur, diastolic murmur, rubs, gallop, clicks GI/Abdominal exam: Present: tenderness (Generalized). Absent: guarding, rebound, rigid Extremities exam: Present: other (Some bruising to the left anterior shoulder) Neurological exam: Present: alert, oriented X3, CN II-XII intact Psychiatric exam: Present: normal affect, normal mood - Labs CBC & Chem 7: 10/28/23 05:51 10/28/23 05:51 Labs: Abnormal Lab Results - Last 24 Hours (Table) 10/27/23 10/27/23 10/28/23 Range/Units 05:42 10:16 05:51 WBC 10.7 H (3.8-10.6) k/uL Neutrophils # 8.6 H (1.3-7.7) k/uL Lymphocytes # 0.8 L (1.0-4.8) k/uL Chloride (98-107) mmol/L BUN (7-17) mg/dL Glucose (74-99) mg/dL Creatine Kinase 1726 A* (26-186) U/L Ur Specific [place] >1.050 H (1.001-1.035) Urine Protein 2+ H (Negative) Urine Glucose (UA) 1+ H (Negative) Urine Ketones 1+ H (Negative) Urine Blood Moderate H (Negative) Urine RBC 31 H (0-5) /hpf Ur Squamous Epith Cells 7 H (0-4) /hpf Urine Mucus Few H (None) /hpf 10/28/23 Range/Units 05:51 WBC (3.8-10.6) k/uL Neutrophils # (1.3-7.7) k/uL Lymphocytes # (1.0-4.8) k/uL Chloride 113 H (98-107) mmol/L BUN 49 H (7-17) mg/dL Glucose 113 H (74-99) mg/dL Creatine Kinase 826 H (26-186) U/L Ur Specific [place] (1.001-1.035) Urine Protein (Negative) Urine Glucose (UA) (Negative) Urine Ketones (Negative) Urine Blood (Negative) Urine RBC (0-5) /hpf Ur Squamous Epith Cells (0-4) /hpf Urine Mucus (None) /hpf Assessment and Plan Assessment: 1. Partial small bowel obstruction versus ileus --Patient has passing flatus; remains n.p.o. -General surgery on board and recommending to continue with conservative management; patient is currently n.p.o. and remains on IV fluids -- Increase activity 2. Rhabdomyolysis; CK is elevated at 4541; BUN elevated at 49 Patient remains on IV fluids- ; we will monitor CPK and renal function closely 3. Hypertension; metoprolol 25 mg twice daily; Aldactone 25 mg daily 4. Hyperlipidemia; Lipitor 80 mg p.o. nightly 5. Marked leukocytosis; with elevated lactic acid levels; no clear source of infection; patient has been placed on IV Rocephin in ED along with Flagyl; will continue with current antibiotics and consult ID for further evaluation and recommendations DVT prophylaxis; SCDs CODE STATUS; full code
[2023-10-28] MEDS: NYSTATIN 100,000 UNIT/GM POWD 15 GM TOPICAL SCH (21:06)
[2023-10-29] MEDS: hydrALAZINE HCL 20 MG/ML 1 ML VIAL IVP PRN (02:22)
[2023-10-29 09:20] LABS: Basophils # (A) 0.04 X 10*3/uL (0.00-0.10); Basophils % (A) 0.4 %; Eosinophils # (A) 0.36 X 10*3/uL (0.04-0.35); Eosinophils % (A) 3.8 %; HCT 44.1 % (37.2-46.3); HGB 14.1 g/dL (12.0-15.0); Lymphocytes # (A) 1.12 X 10*3/uL (0.90-5.00); Lymphocytes % (A) 11.8 %; MCH 29.6 pg (27.0-32.0); MCV 92.5 FL (80.0-97.0); Mean Platelet Volume 10.2 FL (9.5-12.2); Monocytes # (A) 0.88 X 10*3/uL (0.20-1.00); Monocytes % (A) 9.3 %; NRBC Per 100 WBC 0 X 10*3/uL (0.00-0.01); Neutrophils # (A) 6.97 X 10*3/uL (1.80-7.70); Neutrophils % (A) 73.3 %; Platelet Count 159 X 10*3/uL (140-440); RBC 4.77 X 10*6/uL (4.10-5.20); RDW 13.5 % (11.5-14.5)
[2023-10-29 09:30] LABS: BUN/Creat Ratio 53.67 Ratio (12.00-20.00); Blood Urea Nitrogen 32.2 mg/dL (9.0-27.0); Carbon Dioxide 20.4 mmol/L (21.6-31.8); Chloride 114 mmol/L (96-109); Glucose 88 mg/dL (70-110); Potassium 4.2 mmol/L (3.5-5.5); Sodium 147 mmol/L (135-145)
[2023-10-29 09:46] LABS: Creatine Kinase 421 U/L (26-186)
--- NOTE | 2023-10-29 10:33 | P.PN ---
Subjective Progress Note Date: 10/29/23 Consult reason: chest pain History of present illness: The patient is an 88-year-old female who follows in the office with Dr. Mata. She presented to the emergency room with abdominal discomfort, nausea, and vomiting. The patient states that this started several days ago and she laid down on the floor, but was not able to get back up. She believes she was on the ground for approximately 1 day. The patient denies any syncope or fall. No traumatic injuries, but she did have elevated CK and lactic acidosis. Abdominal ultrasound showed ileus versus small bowel obstruction. Cardiology has been consulted as the patient was reporting some epigastric discomfort. DIAGNOSTICS: EKG shows sinus mechanism without ST or T wave abnormalities Abdominal x-ray shows dilated bowel loops, ileus versus partial obstruction Lab data: WBC 10.7, hematocrit 44.7, hemoglobin 14.1, platelet 165, sodium 144, potassium 4.5, BUN failure 29, creatinine 0.76, CK8 126, troponin 0.02, 0.02 10/28 Patient remains with NG tube in place, on ice chips. She is having lower sternal midsternal chest pain. Blood pressure is elevated 187/69. Heart rate is 48-62. Echocardiogram has been obtained and report is pending. Yesterday, patient was started on clonidine patch 0.1 mg/24 hours. PHYSICAL EXAMINATION: This is a 88-year-old female in no apparent distress at th e time of my examination. HEENT: Head is atraumatic, normocephalic. Pupils are equal, round. There is no jugular venous distention. No carotid bruit is heard. CHEST EXAMINATION: Lungs are clear to auscultation. No chest wall tenderness is noted on palpation or with deep breathing. HEART EXAMINATION: Heart regular rate and rhythm. S1, S2 heard. Soft systolic murmur. No gallops or rub. ABDOMEN: Soft, nontender. Bowel sounds are heard. No organomegaly noted. EXTREMITIES: 2+ peripheral pulses with no evidence of peripheral edema and no calf tenderness noted. NEUROLOGIC EXAMINATION: Patient is awake, alert and oriented x3. FINAL ASSESSMENT AND PLAN: Chest discomfort, likely epigastric Small bowel obstruction History of coronary artery disease History of cardiomyopathy History hypertension PLAN: Clonidine patch 0.1 mg per [address], and a second clonidine patch 0.1 mg until patient is able to tolerate oral medications Echocardiogram and Doppler studyobtain report Further recommendations to be based on clinical course Objective - Vital Signs Vital signs: Vital Signs Temp 97.5 F L 10/29/23 07:20 Pulse 64 10/29/23 07:20 Resp 20 10/29/23 07:20 BP 187/69 10/29/23 07:20 Pulse Ox 95 10/29/23 07:20 FiO2 Intake & Output 10/28/23 10/29/23 10/29/23 18:59 06:59 18:59 Intake Total 0 Output Total 200 150 Balance -200 -150 Intake: Oral 0 Output: Gastric Drainage 200 150 Other: Voiding Method Diaper Diaper Incontinent Incontinent # Voids 1 1 1 # Bowel Movements 1 - Labs CBC & Chem 7: 10/29/23 06:13 10/29/23 06:13 Labs: Abnormal Lab Results - Last 24 Hours (Table) 10/29/23 10/29/23 Range/Units 06:13 06:13 Immature Gran # 0.13 H (0.00-0.04) X 10*3/uL Eosinophils # 0.36 H (0.04-0.35) X 10*3/uL Sodium 147 H (135-145) mmol/L Chloride 114 H (96-109) mmol/L Carbon Dioxide 20.4 L (21.6-31.8) mmol/L Anion Gap 12.60 H (4.00-12.00) mmol/L BUN 32.2 H (9.0-27.0) mg/dL BUN/Creatinine Ratio 53.67 H (12.00-20.00) Ratio Creatine Kinase 421 H (26-186) U/L
[2023-10-29] MEDS: cloNIDine 0.1 MG/24HR PATCH TRANSDERM SCH (12:24)
[2023-10-29] MEDS: SODIUM CHLORIDE 0.45% 1,000 ML IV SCH (12:32)
--- NOTE | 2023-10-29 14:56 | P.PN ---
Subjective Progress Note Date: 10/29/23 Patient admitted as transfer for bowel obstruction from [place]. Has NG tube. Has surgical history including hysterectomy. She complains of epigastric including lower abdominal pain today, "it still hurts." She has NG tube with less than 300 mL output in 24hr. STUDIES: Outside CT scan reviewed demonstrating likely transition point at the right lower quadrant for small bowel obstruction. Also paraesophageal hernia identified. This is my independent interpretation. PLAN: 1. May benefit from small bowel follow through 2. Add popsicles with ice chips 3. Repeat abdominal xray for placement of NG tube due to her paraesophageal hiatal hernia. Objective - Vital Signs Vital signs: Vital Signs Temp 98.3 F 10/29/23 12:24 Pulse 55 L 10/29/23 12:24 Resp 18 10/29/23 12:24 BP 166/70 10/29/23 12:24 Pulse Ox 96 10/29/23 12:24 FiO2 Intake & Output 10/28/23 10/29/23 10/29/23 18:59 06:59 18:59 Intake Total 0 Output Total 200 150 Balance -200 -150 Intake: Oral 0 Output: Gastric Drainage 200 150 Other: Voiding Method Diaper Diaper Diaper Incontinent Incontinent Incontinent # Voids 1 1 1 # Bowel Movements 1 - Labs CBC & Chem 7: 10/29/23 06:13 10/29/23 06:13 Labs: Abnormal Lab Results - Last 24 Hours (Table) 10/29/23 10/29/23 Range/Units 06:13 06:13 Immature Gran # 0.13 H (0.00-0.04) X 10*3/uL Eosinophils # 0.36 H (0.04-0.35) X 10*3/uL Sodium 147 H (135-145) mmol/L Chloride 114 H (96-109) mmol/L Carbon Dioxide 20.4 L (21.6-31.8) mmol/L Anion Gap 12.60 H (4.00-12.00) mmol/L BUN 32.2 H (9.0-27.0) mg/dL BUN/Creatinine Ratio 53.67 H (12.00-20.00) Ratio Creatine Kinase 421 H (26-186) U/L
--- NOTE | 2023-10-29 15:05 | P.PN ---
Subjective Progress Note Date: 10/28/23 Principal diagnosis: Reason for follow-up is a leukocytosis and ileus Patient is a 88-year-old female with a past medical history significant for CVA TIA hypertension hyperlipidemia patient initially presented to [facility] this patient noted an episode of intractable nausea and vomiting x 1 day, patient did have evidence of small bowel obstruction and bj vated white count prompting this consultation On today's evaluation that is 10/28/2023, patient has been afebrile, patient is breathing comfortably and is currently on room air, patient denies having any significant cough no chest pain shortness of breath, patient continued to have NG, denies any worsening abdominal pain still have no bowel movement Patient white count is down to 10.7, creatinine 0.76 Objective - Vital Signs Vital signs: Vital Signs Temp 97.7 F 10/28/23 08:04 Pulse 54 L 10/28/23 08:04 Resp 20 10/28/23 08:04 BP 181/75 10/28/23 08:04 Pulse Ox 94 L 10/28/23 08:04 FiO2 Intake & Output 10/27/23 10/28/23 10/28/23 18:59 06:59 18:59 Output Total 200 200 Balance -200 -200 Output: Gastric Drainage 200 Urine 200 Other: Voiding Method External Catheter Diaper Diaper Incontinent Incontinent # Voids 2 1 - Exam GENERAL DESCRIPTION: An elderly female lying in bed in no distress RESPIRATORY SYSTEM: Unlabored breathing , decreased breath sounds at bases HEART: S1 S2 regular rate and rhythm , ABDOMEN: Soft , no tenderness EXTREMITIES: No edema feet - Labs CBC & Chem 7: 10/29/23 06:13 10/29/23 06:13 Labs: Abnormal Lab Results - Last 24 Hours (Table) 10/27/23 10/27/23 10/28/23 Range/Units 05:42 10:16 05:51 WBC 10.7 H (3.8-10.6) k/uL Neutrophils # 8.6 H (1.3-7.7) k/uL Lymphocytes # 0.8 L (1.0-4.8) k/uL Chloride (98-107) mmol/L BUN (7-17) mg/dL Glucose (74-99) mg/dL Creatine Kinase 1726 A* (26-186) U/L Ur Specific [place] >1.050 H (1.001-1.035) Urine Protein 2+ H (Negative) Urine Glucose (UA) 1+ H (Negative) Urine Ketones 1+ H (Negative) Urine Blood Moderate H (Negative) Urine RBC 31 H (0-5) /hpf Ur Squamous Epith Cells 7 H (0-4) /hpf Urine Mucus Few H (None) /hpf 10/27/ Range/Units 05:51 WBC (3.8-10.6) k/uL Neutrophils # (1.3-7.7) k/uL Lymphocytes # (1.0-4.8) k/uL Chloride 113 H (98-107) mmol/L BUN 49 H (7-17) mg/dL Glucose 113 H (74-99) mg/dL Creatine Kinase 826 H (26-186) U/L Ur Specific [place] (1.001-1.035) Urine Protein (Negative) Urine Glucose (UA) (Negative) Urine Ketones (Negative) Urine Blood (Negative) Urine RBC (0-5) /hpf Ur Squamous Epith Cells (0-4) /hpf Urine Mucus (None) /hpf Assessment and Plan (1) Allergy to multiple antibiotics Current Visit: Yes Status: Acute Code(s): Z88.1 - ALLERGY STATUS TO OTHER ANTIBIOTIC AGENTS SNOMED Code(s): 083968310 (2) Leukocytosis Current Visit: Yes Status: Acute Code(s): D72.829 - ELEVATED WHITE BLOOD CELL COUNT, UNSPECIFIED SNOMED Code(s): 040794441 Plan: 1patient with a leukocytosis likely related to abdominal source in this patient who did have evidence of ileus did not mention any evidence of perforation or abscess on the CT and will need to cover for the enteric gram-negative both aerobes and anaerobes to be the likely pathogen 2patient with multiple antibiotic ALLERGIES that would limit the number of antibiotic safe to use, however patient mention she did have taken amoxicillin clinical doubt true penicillin allergy 3patient to continue with Rocephin 2 g daily and Flagyl, monitor clinical course closely Dictation was produced using [employer] dictation software. please excuse any grammatical, word or spelling errors. Time with Patient: Less than 30
--- NOTE | 2023-10-29 15:06 | P.PN ---
Subjective Progress Note Date: 10/29/23 Principal diagnosis: Reason for follow-up is a leukocytosis and ileus Patient is a 88-year-old female with a past medical history significant for CVA TIA hypertension hyperlipidemia patient initially presented to [facility] this patient noted an episode of intractable nausea and vomiting x 1 day, patient did have evidence of small bowel obstruction and bj vated white count prompting this consultation On today's evaluation that is 10/29/2023,the patient denies any fever or any chills, patient is breathing comfortably on room air, the patient denies chest pain shortness of breath and no significant cough, patient denies nausea vomiting abdominal pain is about the same mention passing gas did not have any bowel movement Patient white count normalized to 9.50, creatinine 0.6 Objective - Vital Signs Vital signs: Vital Signs Temp 98.3 F 10/29/23 12:24 Pulse 55 L 10/29/23 12:24 Resp 18 10/29/23 12:24 BP 166/70 10/29/23 12:24 Pulse Ox 96 10/29/23 12:24 FiO2 Intake & Output 10/28/23 10/29/23 10/29/23 18:59 06:59 18:59 Intake Total 0 Output Total 200 150 Balance -200 -150 Intake: Oral 0 Output: Gastric Drainage 200 150 Other: Voiding Method Diaper Diaper Diaper Incontinent Incontinent Incontinent # Voids 1 1 1 # Bowel Movements 1 - Exam GENERAL DESCRIPTION: An elderly female lying in bed in no distress RESPIRATORY SYSTEM: Unlabored breathing , decreased breath sounds at bases HEART: S1 S2 regular rate and rhythm , ABDOMEN: Soft , no tenderness EXTREMITIES: No edema feet - Labs CBC & Chem 7: 10/29/23 06:13 10/29/23 06:13 Labs: Abnormal Lab Results - Last 24 Hours (Table) 10/29/23 10/29/23 Range/Units 06:13 06:13 Immature Gran # 0.13 H (0.00-0.04) X 10*3/uL Eosinophils # 0.36 H (0.04-0.35) X 10*3/uL Sodium 147 H (135-145) mmol/L Chloride 114 H (96-109) mmol/L Carbon Dioxide 20.4 L (21.6-31.8) mmol/L Anion Gap 12.60 H (4.00-12.00) mmol/L BUN 32.2 H (9.0-27.0) mg/dL BUN/Creatinine Ratio 53.67 H (12.00-20.00) Ratio Creatine Kinase 421 H (26-186) U/L Assessment and Plan (1) Allergy to multiple antibiotics Current Visit: Yes Status: Acute Code(s): Z88.1 - ALLERGY STATUS TO OTHER ANTIBIOTIC AGENTS SNOMED Code(s): 429678931 (2) Leukocytosis Current Visit: Yes Status: Acute Code(s): D72.829 - ELEVATED WHITE BLOOD CELL COUNT, UNSPECIFIED SNOMED Code(s): 187774291 Plan: 1patient with a leukocytosis likely related to abdominal source in this patient who did have evidence of ileus did not mention any evidence of perforation or abscess on the CT and will need to cover for the enteric gram-negative both aerobes and anaerobes to be the likely pathogen 2patient with multiple antibiotic ALLERGIES that would limit the number of antibiotic safe to use, however patient mention she did have taken amoxicillin clinical doubt true penicillin allergy 3patient did have normalization of her white count, patient to continue with Rocephin 2 g daily and Flagyl, surgery recommending small bowel follow-through Family at the bedside questions answered Dictation was produced using [employer] dictation software. please excuse any grammatical, word or spelling errors.
--- NOTE | 2023-10-29 15:35 | XR ---
EXAMINATION TYPE: XR abdomen 2V DATE OF EXAM: 10/29/2023 3:19 PM CLINICAL INDICATION:Female, 88 years old with history of Bowel obstruction, placement of NG tube; [facility] COMPARISON: Abdominal radiograph 10/27/2023 TECHNIQUE: Two views of the abdomen were obtained. FINDINGS: The bowel gas pattern is nonspecific without dilated loops of small or large bowel. There i s no evidence for organomegaly or pneumoperitoneum. Enteric tube can be seen coursing below the diaph ragm, looping in the stomach with tip noted within the left upper quadrant. IMPRESSION: Appropriately positioned enteric tube.
--- NOTE | 2023-10-29 17:31 | P.PN ---
Subjective Progress Note Date: 10/29/23 88-year-old female presents emergency department as a transfer from [place]. Patient reports that she was not feeling well yesterday and therefore she laid down on her kitchen floor. She was found today by a maintenance worker. She was reported that she was having abdominal pain, nausea and vomiting. Patient does have some bruising noted to the left side of her face and left shoulder as she was stuck on the ground for 12 hours. Laboratory studies were completed as well as imaging. Patient had no traumatic injuries however she did have an elevated CK, lactic of 5 and was found to have a small bowel obstruction. No history of small bowel obstructions. She is status post cholecystectomy and hysterectomy. Patient received 4 of Zofran and a liter of fluid and feels improved. No other alleviating, precipitating modifying factors Blood work completed in ED reveals a WBC of 19.7, hemoglobin of 17.2 and platelet count of 223, sodium 139, potassium 4.6, BUNs/creatinine 49/0.94 and blood glucose of 159 10/29/2023 --the patient is seen and evaluated with nursing staff at bedside; sitting up at side of bed; patient reports back stiffness due to being in bed; denies any fever or any chills, patient is breathing comfortably on room air, the patient denies chest pain shortness of breath and no significant cough, patient denies nausea vomiting abdominal pain is about the same mention passing gas did not have any bowel movement Patient white count normalized to 9.50, creatinine 0.6 patient with a leukocytosis likely related to abdominal source in this patient who did have evidence of ileus did not mention any evidence of perforation or abscess on the CT and will need to cover for the enteric gram-negative both aerobes and anaerobes to be the likely pathogen patient with multiple antibiotic ALLERGIES that would limit the number of antibiotic safe to use, however patient mention she did have taken amoxicillin clinical doubt true penicillin allergy patient did have normalization of her white count, patient to continue with Rocephin 2 g daily and Flagyl, surgery recommending small bowel follow-through Objective - Vital Signs Vital signs: Vital Signs Temp 98.3 F 10/29/23 12:24 Pulse 55 L 10/29/23 12:24 Resp 18 10/29/23 12:24 BP 166/70 10/29/23 12:24 Pulse Ox 96 10/29/23 12:24 FiO2 Intake & Output 10/28/23 10/29/23 10/29/23 18:59 06:59 18:59 Intake Total 0 Output Total 200 150 Balance -200 -150 Intake: Oral 0 Output: Gastric Drainage 200 150 Other: Voiding Method Diaper Diaper Incontinent Incontinent # Voids 1 1 1 # Bowel Movements 1 - Exam General appearance: alert, in no apparent distress Head exam: Present: other (bruising around the left eye) Eye exam: Present: normal appearance, PERRL, EOMI. Absent: scleral icterus, conjunctival injection, periorbital swelling ENT exam: Present: normal exam, mucous membranes moist Respiratory exam: Present: normal lung sounds bilaterally. Absent: respiratory distress, wheezes, rales, rhonchi, stridor Cardiovascular Exam: Present: regular rate, normal rhythm, normal heart sounds. Absent: systolic murmur, diastolic murmur, rubs, gallop, clicks GI/Abdominal exam: Present: tenderness (Generalized). Absent: guarding, rebound, rigid Extremities exam: Present: other (Some bruising to the left anterior shoulder) Neurological exam: Present: alert, oriented X3, CN II-XII intact Psychiatric exam: Present: normal affect, normal mood - Labs CBC & Chem 7: 10/29/23 06:13 10/29/23 06:13 Labs: Abnormal Lab Results - Last 24 Hours (Table) 10/29/23 10/29/23 Range/Units 06:13 06:13 Immature Gran # 0.13 H (0.00-0.04) X 10*3/uL Eosinophils # 0.36 H (0.04-0.35) X 10*3/uL Sodium 147 H (135-145) mmol/L Chloride 114 H (96-109) mmol/L Carbon Dioxide 20.4 L (21.6-31.8) mmol/L Anion Gap 12.60 H (4.00-12.00) mmol/L BUN 32.2 H (9.0-27.0) mg/dL BUN/Creatinine Ratio 53.67 H (12.00-20.00) Ratio Creatine Kinase 421 H (26-186) U/L Assessment and Plan Assessment: 1. Partial small bowel obstruction versus ileus --Patient has passing flatus; remains n.p.o. -General surgery on board and recommending to continue with conservative managem ent; patient is currently n.p.o. and remains on IV fluids -- Increase activity 2. Rhabdomyolysis; CK is elevated at 4541; BUN elevated at 49 Patient remains on IV fluids- ; we will monitor CPK and renal function closely 3. Hypertension; metoprolol 25 mg twice daily; Aldactone 25 mg daily 4. Hyperlipidemia; Lipitor 80 mg p.o. nightly 5. Marked leukocytosis; with elevated lactic acid levels; no clear source of infection; patient has been placed on IV Rocephin in ED along with Flagyl; will continue with current antibiotics and consult ID for further evaluation and recommendations DVT prophylaxis; SCDs CODE STATUS; full code
[2023-10-30 08:37] LABS: Basophils # (A) 0.04 X 10*3/uL (0.00-0.10); Basophils % (A) 0.4 %; Eosinophils # (A) 0.42 X 10*3/uL (0.04-0.35); Eosinophils % (A) 4.5 %; HCT 43.4 % (37.2-46.3); HGB 13.6 g/dL (12.0-15.0); Lymphocytes # (A) 0.76 X 10*3/uL (0.90-5.00); Lymphocytes % (A) 8.2 %; MCH 29.6 pg (27.0-32.0); MCHC 31.3 g/dL (32.0-37.0); MCV 94.3 FL (80.0-97.0); Mean Platelet Volume 10.3 FL (9.5-12.2); Monocytes # (A) 0.79 X 10*3/uL (0.20-1.00); Monocytes % (A) 8.5 %; NRBC Per 100 WBC 0 X 10*3/uL (0.00-0.01); Neutrophils # (A) 7.09 X 10*3/uL (1.80-7.70); Neutrophils % (A) 76.8 %; Platelet Count 166 X 10*3/uL (140-440); RDW 13.9 % (11.5-14.5); WBC 9.25 X 10*3/uL (4.50-10.00)
[2023-10-30 08:51] LABS: BUN/Creat Ratio 44.86 Ratio (12.00-20.00); Blood Urea Nitrogen 31.4 mg/dL (9.0-27.0); Calcium 8.7 mg/dL (8.7-10.3); Carbon Dioxide 21.2 mmol/L (21.6-31.8); Chloride 111 mmol/L (96-109); Glucose 85 mg/dL (70-110); Potassium 4.3 mmol/L (3.5-5.5); Sodium 144 mmol/L (135-145)
[2023-10-30 09:01] LABS: Creatine Kinase 203 U/L (26-186)
[2023-10-30] MEDS: LOSARTAN 25 MG TAB PO SCH (09:50)
--- NOTE | 2023-10-30 10:02 | P.PN ---
Subjective Progress Note Date: 10/30/23 Consult reason: chest pain History of present illness: The patient is an 88-year-old female who follows in the office with Dr. Mata. She presented to the emergency room with abdominal discomfort, nausea, and vomiting. The patient states that this started several days ago and she laid down on the floor, but was not able to get back up. She believes she was on the ground for approximately 1 day. The patient denies any syncope or fall. No traumatic injuries, but she did have elevated CK and lactic acidosis. Abdominal ultrasound showed ileus versus small bowel obstruction. Cardiology has been consulted as the patient was reporting some epigastric discomfort. DIAGNOSTICS: EKG shows sinus mechanism without ST or T wave abnormalities Abdominal x-ray shows dilated bowel loops, ileus versus partial obstruction Lab data: WBC 10.7, hematocrit 44.7, hemoglobin 14.1, platelet 165, sodium 144, potassium 4.5, BUN failure 29, creatinine 0.76, CK8 126, troponin 0.02, 0.02 10/28 Patient remains with NG tube in place, on ice chips. She is having lower sternal midsternal chest pain. Blood pressure is elevated 187/69. Heart rate is 48-62. Echocardiogram has been obtained and report is pending. Yesterday, patient was started on clonidine patch 0.1 mg/24 hours. 10/29 Patient remains with NG tube in place but now may take oral medications with clamping of the NG tube. Blood pressure readings remain elevated 141/68-165/61 despite use of 2 clonidine patches. Patient was given hydralazine 10 mg IV push last night. Heart rate is in the 50s. Repeat blood work reveals hemoglobin 13.6, potassium 4.3, BUN 31 creatinine 0.7. PHYSICAL EXAMINATION: This is a 88-year-old female in no apparent distress at the time of my examination. HEENT: Head is atraumatic, normocephalic. Pupils are equal, round. There is no jugular venous distention. No carotid bruit is heard. CHEST EXAMINATION: Lungs are clear to auscultation. No chest wall tenderness is noted on palpation or with deep breathing. HEART EXAMINATION: Heart regular rate and rhythm. S1, S2 heard. Soft systolic murmur. No gallops or rub. ABDOMEN: Soft, nontender. Bowel sounds are heard. No organomegaly noted. EXTREMITIES: 2+ peripheral pulses with no evidence of peripheral edema and no calf tenderness noted. NEUROLOGIC EXAMINATION: Patient is awake, alert and oriented x3. FINAL ASSESSMENT AND PLAN: Chest discomfort, likely epigastric Small bowel obstruction History of coronary artery disease History of cardiomyopathy History hypertension PLAN: Clonidine patch 0.1 mg per [address], and a second clonidine patch 0.1 mg until patient is able to tolerate oral medications Start patient on losartan 25 mg daily, continue Lopressor 25 mg twice daily Echocardiogram and Doppler studyobtain report Further recommendations to be based on clinical course Nurse practitioner note has been reviewed, I agree with documented findings and plan of care. Patient was seen and examined. Objective - Vital Signs Vital signs: Vital Signs Temp 97.6 F 10/30/23 07:39 Pulse 54 L 10/30/23 07:39 Resp 17 10/30/23 07:39 BP 165/61 10/30/23 07:39 Pulse Ox 94 L 10/30/23 07:39 FiO2 Intake & Output 10/29/23 10/30/23 10/30/23 18:59 06:59 18:59 Output Total 200 Balance -200 Output: Gastric Drainage 200 Other: Voiding Method Diaper Diaper Incontinent Incontinent # Voids 1 2 - Labs CBC & Chem 7: 10/30/23 06:06 10/30/23 06:06 Labs: Abnormal Lab Results - Last 24 Hours (Table) 10/29/23 10/29/23 Range/Units 06:13 06:13 Immature Gran # 0.13 H (0.00-0.04) X 10*3/uL Eosinophils # 0.36 H (0.04-0.35) X 10*3/uL Sodium 147 H (135-145) mmol/L Chloride 114 H (96-109) mmol/L Carbon Dioxide 20.4 L (21.6-31.8) mmol/L Anion Gap 12.60 H (4.00-12.00) mmol/L BUN 32.2 H (9.0-27.0) mg/dL BUN/Creatinine Ratio 53.67 H (12.00-20.00) Ratio Creatine Kinase 421 H (26-186) U/L
--- NOTE | 2023-10-30 10:10 | P.PN ---
Subjective Progress Note Date: 10/30/23 Principal diagnosis: Abdominal pain Patient still complaining of epigastric abdominal pain. Says this is not chronic but is a recent finding. Nasogastric tube was placed. Despite decompression patient still having discomfort. Recent x-ray showed normal bowel pattern. Gastric tube appears to be appropriately located. Her white blood cell count is now normal. She is afebrile. Objective - Vital Signs Vital signs: Vital Signs Temp 97.6 F 10/30/23 07:39 Pulse 54 L 10/30/23 07:39 Resp 17 10/30/23 07:39 BP 165/61 10/30/23 07:39 Pulse Ox 94 L 10/30/23 07:39 FiO2 Intake & Output 10/29/23 10/30/23 10/30/23 18:59 06:59 18:59 Output Total 200 Balance -200 Output: Gastric Drainage 200 Other: Voiding Method Diaper Diaper Incontinent Incontinent # Voids 1 2 - Exam Abdomen: Soft, mild epigastric tenderness, no rebound or guarding - Labs CBC & Chem 7: 10/30/23 06:06 10/30/23 06:06 Labs: Abnormal Lab Results - Last 24 Hours (Table) 10/30/23 10/30/23 Range/Units 06:06 06:06 MCHC 31.3 L (32.0-37.0) g/dL Immature Gran # 0.15 H (0.00-0.04) X 10*3/uL Lymphocytes # 0.76 L (0.90-5.00) X 10*3/uL Eosinophils # 0.42 H (0.04-0.35) X 10*3/uL Chloride 111 H (96-109) mmol/L Carbon Dioxide 21.2 L (21.6-31.8) mmol/L BUN 31.4 H (9.0-27.0) mg/dL BUN/Creatinine Ratio 44.86 H (12.00-20.00) Ratio Creatine Kinase 203 H (26-186) U/L Assessment and Plan (1) Abdominal pain Narrative/Plan: 88-year-old female with abdominal pain. Mostly epigastric in location. Etiology unclear. The for was that she came from the other hospital with suggested possible small bowel obstruction versus ileus. She had gastric distention at the time but nasogastric tube placement did not lead to any resolution of discomfort. Will repeat CT abdomen pelvis at this time. Keep nasogastric tube to suction for now. Keep NPO. Current Visit: Yes Status: Acute Code(s): R10.9 - UNSPECIFIED ABDOMINAL PAIN SNOMED Code(s): 40678388
--- NOTE | 2023-10-30 10:37 | CA ---
Transthoracic Echo Report Name: Mariely Savage Age: 88 Gender: F : 1935 Exam Date: 10/28/2023 15:14 Exam Location: [facility] Ht (in): 63 Wt (lb): 185 Ordering Physician: Jayjay Verdugo MD Attending/Referring Phys: [id number], Kartik [employer] Operator Jesenia García, WANDA Procedure CPT: Indications: Rule out heart disease Cardiac Hx: Technical Quality: Technically difficult study Contrast 1: Definity Total Dose (mL): 2 Contrast 2: Total Dose (mL): MEASUREMENTS (Male / Female) Normal Values 2D ECHO LV Diastolic Diameter PLAX 4.0 cm 4.2 - 5.9 / 3.9 - 5.3 cm LV Systolic Diameter PLAX 2.2 cm IVS Diastolic Thickness 1.3 cm 0.6 - 1.0 / 0.6 - 0.9 cm LVPW Diastolic Thickness 1.3 cm 0.6 - 1.0 / 0.6 - 0.9 cm LV Relative Wall Thickness 0.6 RV Internal Dim ED PLAX 3.0 cm LA Volume 52.8 cm??? 18 - 58 / 22 - 52 cm??? LA Volume Index 26.9 cm???/m??? 16 - 28 cm???/m??? M-MODE Aortic Root Diameter MM 2.8 cm LA Systolic Diameter MM 4.6 cm LA Ao Ratio MM 1.6 AV Cusp Separation MM 1.8 cm DOPPLER AV Peak Velocity 142.5 cm/s AV Peak Gradient 8.1 mmHg AV Mean Velocity 87.0 cm/s AV Mean Gradient 3.7 mmHg AV Velocity Time Integral 30.1 cm LVOT Peak Velocity 91.8 cm/s LVOT Peak Gradient 3.4 mmHg LVOT Velocity Time Integral 19.5 cm MV Area PHT 2.4 cm??? Mitral E Point Velocity 86.2 cm/s Mitral A Point Velocity 55.3 cm/s Mitral E to A Ratio 1.6 MV Deceleration Time 318.6 ms MV E' Velocity 4.5 cm/s Mitral E to MV E' Ratio 19.2 TR Peak Velocity 167.9 cm/s TR Peak Gradient 11.3 mmHg Right Ventricular Systolic Press 16.3 mmHg FINDINGS Left Ventricle Mildly increased left ventricular wall thickness. Left ventricular cavity size normal. Normal left ventricular systolic function with no obvious regional wall motion abnormalities. Left ventricular ejection fraction is estimated at 55-60 %. Right Ventricle Normal right ventricular size and function. Right ventricular systolic pressure within normal limits. Right Atrium Normal right atrial size. Left Atrium Normal left atrial size. Mitral Valve Structurally normal mitral valve. No mitral stenosis. Mild mitral annular calcification. Mild mitral regurgitation. Aortic Valve Trileaflet aortic valve. No aortic valve stenosis or regurgitation. Tricuspid Valve Structurally normal tricuspid valve. Mild tricuspid regurgitation. Pulmonic Valve Structurally normal pulmonic valve. Pericardium No pericardial effusion. Aorta Normal size aortic root and proximal ascending aorta. CONCLUSIONS Normal LV function Mild mitral regurgitate Previewed by: Dr. Thien Naqvi MD (Electronically Signed) Final Date: 30 October 2023 10:36
[2023-10-30] MEDS: IOPAMIDOL CONTRAST (ORAL USE) VIAL PO PRN (11:24)
[2023-10-30] MEDS: PANTOPRAZOLE 40 MG/10 ML VIAL IVP SCH (11:31)
--- NOTE | 2023-10-30 12:07 | XR ---
EXAMINATION TYPE: XR chest 1V portable DATE OF EXAM: 10/30/2023 Comparison: 08/02/2012 Clinical History: 88-year-old female CHF Findings: Heart mildly enlarged. NG tube is in place. Atelectatic arch calcifications. Mild interstitial densit ies. Hazy peripheral and basilar densities related to underpenetration limiting the evaluation. Impression: Portable exam further limited by underpenetration. Mild cardiomegaly and possible mild pulmonary vasc ular congestion.
--- NOTE | 2023-10-30 12:13 | P.PN ---
Subjective Progress Note Date: 10/30/23 Principal diagnosis: Reason for follow-up is a leukocytosis and ileus Patient is a 88-year-old female with a past medical history significant for CVA TIA hypertension hyperlipidemia patient initially presented to [facility] this patient noted an episode of intractable nausea and vomiting x 1 day, patient did have evidence of small bowel obstruction and bj vated white count prompting this consultation On today's evaluation that is 10/30/2023,the patient remains to be afebrile, patient is on room air not requiring supplemental oxygen and denies any short ness of breath no chest pain or cough.Patient denies having any nausea or vomiting, patient still have the NG in still complaining of abdominal pain to be about the same passing gas but no bowel movement. Patient white count is 9.25, creatinine 0.7 abdominal x-ray yesterday bowel gas pattern is nonspecific improved position of the enteric tube chest x-ray mild cardiomegaly and pulmonary vascular congestion Objective - Vital Signs Vital signs: Vital Signs Temp 97.6 F 10/30/23 07:39 Pulse 54 L 10/30/23 07:39 Resp 17 10/30/23 07:39 BP 165/61 10/30/23 07:39 Pulse Ox 94 L 10/30/23 07:39 FiO2 Intake & Output 10/29/23 10/30/23 10/30/23 18:59 06:59 18:59 Output Total 200 Balance -200 Output: Gastric Drainage 200 Other: Voiding Method Diaper Diaper Diaper Incontinent Incontinent Incontinent # Voids 1 2 - Exam GENERAL DESCRIPTION: An elderly female lying in bed in no distress RESPIRATORY SYSTEM: Unlabored breathing , decreased breath sounds at bases HEART: S1 S2 regular rate and rhythm , ABDOMEN: Soft , no tenderness EXTREMITIES: No edema feet - Labs CBC & Chem 7: 10/30/23 06:06 10/30/23 06:06 Labs: Abnormal Lab Results - Last 24 Hours (Table) 10/30/23 10/30/23 Range/Units 06:06 06:06 MCHC 31.3 L (32.0-37.0) g/dL Immature Gran # 0.15 H (0.00-0.04) X 10*3/uL Lymphocytes # 0.76 L (0.90-5.00) X 10*3/uL Eosinophils # 0.42 H (0.04-0.35) X 10*3/uL Chloride 111 H (96-109) mmol/L Carbon Dioxide 21.2 L (21.6-31.8) mmol/L BUN 31.4 H (9.0-27.0) mg/dL BUN/Creatinine Ratio 44.86 H (12.00-20.00) Ratio Creatine Kinase 203 H (26-186) U/L Assessment and Plan (1) Allergy to multiple antibiotics Current Visit: Yes Status: Acute Code(s): Z88.1 - ALLERGY STATUS TO OTHER ANTIBIOTIC AGENTS SNOMED Code(s): 348009430 (2) Leukocytosis Current Visit: Yes Status: Acute Code(s): D72.829 - ELEVATED WHITE BLOOD CELL COUNT, UNSPECIFIED SNOMED Code(s): 434369539 Plan: 1patient with a leukocytosis likely related to abdominal source in this patient who did have evidence of ileus did not mention any evidence of perforation or abscess on the CT and will need to cover for the enteric gram-negative both aero bes and anaerobes to be the likely pathogen 2patient with multiple antibiotic ALLERGIES that would limit the number of antibiotic safe to use, however patient mention she did have taken amoxicillin c linical doubt true penicillin allergy 3patient did have normalization of her white count, still complaining of abdominal discomfort and no bowel movement repeat CT has been ordered results will be followed patient is covered with Rocephin and Flagyl questions were answered Dictation was produced using [employer] dictation software. please excuse any grammatical, word or spelling errors. Time with Patient: Less than 30
--- NOTE | 2023-10-30 13:41 | PN ---
PROGRESS NOTE DATE OF SERVICE: 10/30/2023 SUBJECTIVE: This is an 88-year-old woman who was admitted with partial small bowel obstruction versus ileus with NG tube in situ. The patient also complains of abdominal pain. Multiple consultants are following the patient closely. Surgery has recommended possible small bowel follow-through. The CT previously showed possibly transition point at the right lower quadrant for a small bowel obstruction. Apparently, white count is normal. Creatinine is also elevated. PAST MEDICAL HISTORY: Reviewed. REVIEW OF SYSTEMS: A 14-point review is negative except as mentioned. CURRENT MEDICATIONS: Reviewed include Rocephin, dose and rest of medications noted. PHYSICAL EXAMINATION: VITAL SIGNS: Pulse 54, blood pressure 160/61, respirations 17. HEENT: Conjunctivae normal. NECK: No jugular venous distention. CARDIOVASCULAR: S1 and S2. CHEST: Diminished respirations, few scattered rhonchi. ABDOMEN: Soft, mild diffuse tenderness present. No guarding. No rigidity. No mass. Bowel sounds diminished. NERVOUS SYSTEM: Nonfocal. LABORATORY DATA: Reviewed. Plain x-ray abdomen reviewed. ASSESSMENT: 1. Abdominal distention with pain, possibly small-bowel obstruction, on NG tube. 2. Severe abdominal pain. 3. Elevated WBC, present on admission. 4. Hyponatremia. 5. CVA TIA. 6. Hypertension. 7. Hyperlipidemia. RECOMMENDATIONS: This 88-year-old woman presented with multiple complex medical issues, we will monitor the patient closely. Continue current medications, continue symptomatic treatment. Otherwise, I would also recommend a CT of abdomen repeat and surgery is following the patient closely. Otherwise, symptomatic treatment. Guarded prognosis. Further recommendations to follow. See orders for details. MMODL / IJN: [id number] /
[2023-10-30 15:31] VITALS: BMI 32.8
--- NOTE | 2023-10-30 20:11 | CT ---
EXAMINATION TYPE: CT abdomen pelvis w con DATE OF EXAM: 10/30/2023 COMPARISON: Outside CT 10/26/2023 HISTORY: 88-year-old female follow-up epigastric abdominal pain, SBO TECHNIQUE: Contiguous axial scanning of the abdomen and pelvis following administration of 100 ml Iso abby 300 IV contrast. Delayed images through the kidneys and coronal/sagittal reconstructions perform ed. CT DLP: 1784.3 mGycm Automated exposure control for dose reduction was used. FINDINGS: Heart borderline in size without pericardial effusion. New trace bilateral pleural effusion s and patchy bibasilar atelectasis. Small hiatal hernia. NG tube is present with interval decompression of the lower esophagus and stomac h. No focal liver lesion. Gallbladder surgically absent. Portal venous system is patent. No biliary duct al dilatation. Pancreas shows a vague 1.8 cm hypodensity along the right lateral aspect of the pancreatic head, axia l image 24 which may be partial volume averaging artifact. Short interval follow-up and correlation w ith CA 19 9 levels to exclude neoplastic etiology. Adrenal glands, kidneys, and spleen within normal limits. Moderate atherosclerotic calcifications abdominal aorta and iliac arteries. Interval improvement in the caliber of small bowel loops. Loops measure up to 2.8 cm currently versus 4.2 cm, previously. Oral contrast has progressed into the transverse colon. Moderate stool in the rectum but otherwise, n o significant stool burden. Proximal to mid sigmoid colon diverticulosis. No pericolonic inflammatory change. No free fluid or free air. No mesenteric or retroperitoneal adenopathy. Prominent distention of the urinary bladder nearly to the umbilicus measuring up to 2.3 cm. Correlate to exclude urinary retention. Uterus surgically absent. Left ovary not seen. 2 cysts associated with the right adnexa measuring 2.3 cm and 1.6 cm. Six-month follow-up pelvic ultrasound to reassess and further characterize and to det ermine any subsequent surveillance follow-up. No abnormal fluid collection in the pelvis or pelvic ly mphadenopathy. Bones: Osteitis pubis. Moderate to severe degenerative change of both hips. Degenerative change sacroiliac j oints. Degenerative levoconvex scoliotic curvature. Baastrup's disease. Hypertrophic facet arthropath y throughout. IMPRESSION: 1. NG TUBE PRESENT WITH INTERVAL SATISFACTORY DECOMPRESSION OF THE STOMACH AND SMALL BOWEL. FINDINGS SUGGEST RESOLUTION OF PREVIOUS SMALL BOWEL OBSTRUCTION. ORAL CONTRAST HAS PROGRESSED INTO THE TRANSVE RSE COLON. 2. A VAGUE 1.8 CM HYPODENSITY IN THE PANCREATIC HEAD MAY REPRESENT PARTIAL VOLUME AVERAGING ARTIFACT. RECOMMEND 2-3 MONTH FOLLOW-UP CT TO ENSURE STABILITY AND EXCLUDE NEOPLASM. CORRELATE WITH CA-19-9 LE VELS IN THE MEANWHILE. 3. SIGMOID DIVERTICULOSIS WITHOUT ACUTE DIVERTICULITIS. 4. PROMINENT DISTENTION OF THE URINARY BLADDER UP TO THE LEVEL OF THE UMBILICUS. CORRELATE TO EXCLUDE URINARY RETENTION. 5. 2 CYSTS ASSOCIATED WITH THE RIGHT ADNEXA MEASURING 2.3 CM AND 1.6 CM. SIX-MONTH FOLLOW-UP PELVIC U LTRASOUND TO REASSESS, TO FURTHER CHARACTERIZE, AND TO DETERMINE ANY SUBSEQUENT SURVEILLANCE FOLLOW-U P.
[2023-10-30] MEDS: HEPARIN SODIUM,PORCINE 5,000 UNIT/ML 1 ML VIAL SQ SCH (20:54)
[2023-10-31] MEDS: ONDANSETRON 4 MG/2 ML VIAL IVP PRN (09:11)
[2023-10-31 12:38] LABS: ALT 30 U/L (8-44); AST 44 U/L (13-35); Albumin 2.9 g/dL (3.8-4.9); Albumin/Globulin Ratio 1.81 Ratio (1.60-3.17); Alkaline Phosphatase 49 U/L (41-126); BUN/Creat Ratio 39.14 Ratio (12.00-20.00); Blood Urea Nitrogen 27.4 mg/dL (9.0-27.0); Calcium 8.7 mg/dL (8.7-10.3); Carbon Dioxide 21.4 mmol/L (21.6-31.8); Chloride 108 mmol/L (96-109); Globulin 1.6 g/dL (1.6-3.3); Glucose 93 mg/dL (70-110); Potassium 4.3 mmol/L (3.5-5.5); Sodium 140 mmol/L (135-145); Total Bilirubin 0.9 mg/dL (0.3-1.2); Total Protein 4.5 g/dL (6.2-8.2)
[2023-10-31 12:39] LABS: Basophils # (A) 0.03 X 10*3/uL (0.00-0.10); Basophils % (A) 0.3 %; Eosinophils # (A) 0.46 X 10*3/uL (0.04-0.35); HCT 40.7 % (37.2-46.3); HGB 12.9 g/dL (12.0-15.0); Lymphocytes # (A) 0.85 X 10*3/uL (0.90-5.00); Lymphocytes % (A) 9.2 %; MCH 29.7 pg (27.0-32.0); MCHC 31.7 g/dL (32.0-37.0); MCV 93.8 FL (80.0-97.0); Mean Platelet Volume 10.6 FL (9.5-12.2); Monocytes # (A) 0.91 X 10*3/uL (0.20-1.00); Monocytes % (A) 9.8 %; NRBC Per 100 WBC 0 X 10*3/uL (0.00-0.01); Neutrophils # (A) 6.73 X 10*3/uL (1.80-7.70); Neutrophils % (A) 72.5 %; Platelet Count 163 X 10*3/uL (140-440); RBC 4.34 X 10*6/uL (4.10-5.20); RDW 13.8 % (11.5-14.5); WBC 9.28 X 10*3/uL (4.50-10.00)
--- NOTE | 2023-10-31 12:47 | P.PN ---
Subjective Progress Note Date: 10/31/23 Principal diagnosis: Reason for follow-up is a leukocytosis and ileus Patient is a 88-year-old female with a past medical history significant for CVA TIA hypertension hyperlipidemia patient initially presented to [facility] this patient noted an episode of intractable nausea and vomiting x 1 day, patient did have evidence of small bowel obstruction and bj vated white count prompting this consultation On today's evaluation that is 10/31/2023, the patient continues to be afebrile, the patient is on room air and breathing comfortably, the Pt denies having any chest pain or cough, the patient did have a bowel movement abdominal pain has improved no nausea vomiting NG has been discontinued, feeling slightly better today. Patient white count is 9.28, creatinine 0.7 Objective - Vital Signs Vital signs: Vital Signs Temp 98.2 F 10/31/23 07:22 Pulse 50 L 10/31/23 07:22 Resp 16 10/31/23 07:22 BP 122/56 10/31/23 07:22 Pulse Ox 96 10/31/23 07:22 FiO2 Intake & Output 10/30/23 10/31/23 10/31/23 18:59 06:59 18:59 Intake Total 220 360 Balance 220 360 Weight 84 kg Intake: Intake, IV Titration 100 Amount metroNIDAZOLE-NS PMX 500 100 mg In Saline 1 100ml.bag @ 100 mls/hr IVPB Q8HR [facility] Rx#:[id number] Oral 120 360 Other: Voiding Method Diaper Diaper Diaper Incontinent Incontinent Incontinent # Voids 3 3 1 # Bowel Movements 1 - Exam GENERAL DESCRIPTION: An elderly female lying in bed in no distress RESPIRATORY SYSTEM: Unlabored breathing , decreased breath sounds at bases HEART: S1 S2 regular rate and rhythm , ABDOMEN: Soft , no tenderness EXTREMITIES: No edema feet - Labs CBC & Chem 7: 10/31/23 07:42 10/31/23 07:42 Assessment and Plan (1) Allergy to multiple antibiotics Current Visit: Yes Status: Acute Code(s): Z88.1 - ALLERGY STATUS TO OTHER ANTIBIOTIC AGENTS SNOMED Code(s): 064623279 (2) Leukocytosis Current Visit: Yes Status: Acute Code(s): D72.829 - ELEVATED WHITE BLOOD CELL COUNT, UNSPECIFIED SNOMED Code(s): 821775645 Plan: 1patient with a leukocytosis likely related to abdominal source in this patient who did have evidence of ileus did not mention any evidence of perforation or abscess on the CT and will need to cover for the enteric gram-negative both aerobes and anaerobes to be the likely pathogen 2patient with multiple antibiotic ALLERGIES that would limit the number of antibiotic safe to use, however patient mention she did have taken amoxicillin clinical doubt true penicillin allergy 3patient did have normalization of her white count, and the patient did have candida wel movement feeling better to continue Rocephin and Flagyl transition to oral antibiotic on discharge Dictation was produced using [employer] dictation software. please excuse any grammatical, word or spelling errors. Time with Patient: Less than 30
[2023-10-31] MEDS: IV FLUID CONTINUATION 800 ML IV ONE (13:23)
[2023-10-31] MEDS ORDERED: PROPOFOL 10 MG/ML 20 ML VIAL IV ONE (13:25)
--- NOTE | 2023-10-31 13:39 | P.PCN ---
Date of Procedure: 10/31/23 Procedure(s) Performed: Preoperative Dx: Epigastric pain, reflux Postoperative Dx: Erosive esophagitis, hiatal hernia, mild gastritis Procedure: EGD with Bx Anesthesia: Sedation Endoscopist: Dr. Spivey Specimens: Antrum, esophagus Endoscopic Procedure: The patient was on the endoscopy table in the left dec ubitus position. The Olympus gastroscope was inserted into the oropharynx and passed under direct visualization to the region of the third portion of the duodenum. From that point the scope was slowly withdrawn inspecting all surfaces carefully. There were no neoplastic inflammatory or polypoid lesions throughout the duodenum. The pylorus was widely patent. The stomach was carefully inspected. There was mild gastritis present. A biopsy of the antrum took place to rule out H. pylori. Retroflexion revealed a moderate-sized hiatal hernia. The stomach above the diaphragm was free of inflammation. The GE junction was present 3 cm above the diaphragmatic hiatus. The patient had severe erosive esophagitis that was present circumferentially and extended at least 5 to 7 cm proximal to the GE junction. Multiple biopsies were taken circumferentially. The proximal esophagus appeared normal. Recommendations: Await biopsy results. Begin Carafate. Continue Protonix. This could very well be the source of the patient's ongoing discomfort. Consider short-term repeat EGD 3 to 6 months.
--- NOTE | 2023-10-31 14:06 | P.PN ---
Subjective Progress Note Date: 10/31/23 Consult reason: chest pain History of present illness: The patient is an 88-year-old female who follows in the office with Dr. Mata. She presented to the emergency room with abdominal discomfort, nausea, and vomiting. The patient states that this started several days ago and she laid down on the floor, but was not able to get back up. She believes she was on the ground for approximately 1 day. The patient denies any syncope or fall. No traumatic injuries, but she did have elevated CK and lactic acidosis. Abdominal ultrasound showed ileus versus small bowel obstruction. Cardiology has been consulted as the patient was reporting some epigastric discomfort. DIAGNOSTICS: EKG shows sinus mechanism without ST or T wave abnormalities Abdominal x-ray shows dilated bowel loops, ileus versus partial obstruction Lab data: WBC 10.7, hematocrit 44.7, hemoglobin 14.1, platelet 165, sodium 144, potassium 4.5, BUN failure 29, creatinine 0.76, CK8 126, troponin 0.02, 0.02 10/28 Patient remains with NG tube in place, on ice chips. She is having lower sternal midsternal chest pain. Blood pressure is elevated 187/69. Heart rate is 48-62. Echocardiogram has been obtained and report is pending. Yesterday, patient was started on clonidine patch 0.1 mg/24 hours. 10/29 Patient remains with NG tube in place but now may take oral medications with clamping of the NG tube. Blood pressure readings remain elevated 141/68-165/61 despite use of 2 clonidine patches. Patient was given hydralazine 10 mg IV push last night. Heart rate is in the 50s. Repeat blood work reveals hemoglobin 13.6, potassium 4.3, BUN 31 creatinine 0.7. 10/30 Blood pressure 122/56. Heart rate in the 40s and 50s. Pulse ox 96% on room air. Potassium 4.3, sodium 144, BUN 31 creatinine 0.7. Chest x-ray reveals mild cardiomegaly. Possible mild pulmonary vascular congestion. CT of the abdomen pelvis reveals findings suggest resolution of the previous small bowel o bstruction. Patient is back to n.p.o. status for EGD and biopsy scheduled today. Echocardiogram reveals EF of 55 to 60%, normal LV function. Mild mitral regurgitation. PHYSICAL EXAMINATION: This is a 88-year-old female in no apparent distress at the time of my examination. HEENT: Head is atraumatic, normocephalic. Pupils are equal, round. There is no jugular venous distention. No carotid bruit is heard. CHEST EXAMINATION: Lungs are clear to auscultation. No chest wall tenderness is noted on palpation or with deep breathing. HEART EXAMINATION: Heart regular rate and rhythm. S1, S2 heard. Soft systolic murmur. No gallops or rub. ABDOMEN: Soft, nontender. Bowel sounds are heard. No organomegaly noted. EXTREMITIES: 2+ peripheral pulses with no evidence of peripheral edema and no calf tenderness noted. NEUROLOGIC EXAMINATION: Patient is awake, alert and oriented x3. FINAL ASSESSMENT AND PLAN: Chest discomfort, likely epigastric Small bowel obstruction History of coronary artery disease History of cardiomyopathy History hypertension PLAN: Clonidine patch 0.1 mg per [address], and a second clonidine patch 0.1 mg until patient is able to tolerate oral medications Continue patient on losartan 25 mg daily, decrease Lopressor to 12.5 mg twice daily Further recommendations to be based on clinical course Nurse practitioner note has been reviewed, I agree with documented findings and plan of care. Patient was seen and examined. Objective - Vital Signs Vital signs: Vital Signs Temp 98.2 F 10/31/23 07:22 Pulse 50 L 10/31/23 07:22 Resp 16 10/31/23 07:22 BP 122/56 10/31/23 07:22 Pulse Ox 96 10/31/23 07:22 FiO2 Intake & Output 10/30/23 10/31/23 10/31/23 18:59 06:59 18:59 Intake Total 220 360 Balance 220 360 Weight 84 kg Intake: Intake, IV Titration 100 Amount metroNIDAZOLE-NS PMX 500 100 mg In Saline 1 100ml.bag @ 100 mls/hr IVPB Q8HR [facility] Rx#:[id number] Oral 120 360 Other: Voiding Method Diaper Diaper Diaper Incontinent Incontinent Incontinent # Voids 3 3 1 # Bowel Movements 1 - Labs CBC & Chem 7: 10/31/23 07:42 10/31/23 07:42
[2023-10-31] MEDS: SUCRALFATE 1 GM TAB PO SCH (16:57)
[2023-10-31] MEDS: METOPROLOL TARTRATE 12.5 MG TAB PO SCH (20:19)
[2023-10-31] MEDS: HYDROcodone/APAP 5-325MG 1 EACH TAB PO PRN (20:20)
--- NOTE | 2023-11-01 05:15 | PN ---
PROGRESS NOTE DATE OF SERVICE: 10/31/2023 SUBJECTIVE: This is an 88-year-old woman who was admitted with abdominal pain and bowel obstruction, had NG tube removed. Multiple consultants are following the patient closely. Dr. Spivey performed EGD which showed erosive esophagitis, hiatal hernia, and mild gastritis. No chest pain, no palpitations, no fever. OBJECTIVE: VITAL SIGNS: Pulse is 50, blood pressure 120/56, respirations 16. CHEST: Clear to auscultation, CARDIOVASCULAR: S1, S2. ABDOMEN: Soft. LABORATORY DATA: Reviewed. ASSESSMENT: 1. Abdominal distention with pain, possible partial small bowel obstruction, improved with NG tube. 2. Erosive esophagitis. 3. Severe abdominal pain, improved. 4. Elevated WBC, present on admission, improved. 5. Hyponatremia. 6. CVA, TIA history. RECOMMENDATIONS AND DISCUSSION: I recommended to continue current management, continue symptomatic treatment, repeat labs. Increase ambulation. Advance diet per surgery. Possible discharge in the next 24 hours. MMODL / IJN: [id number] /
[2023-11-01 08:24] LABS: Basophils % (A) 0 %; Eosinophils # (A) 0.4 k/uL (0-0.7); Eosinophils % (A) 4 %; HCT 37.6 % (34.0-46.0); HGB 12.1 gm/dL (11.4-16.0); Lymphocytes # (A) 0.8 k/uL (1.0-4.8); Lymphocytes % (A) 9 %; MCH 29.8 pg (25.0-35.0); MCHC 32.1 g/dL (31.0-37.0); MCV 92.8 fL (80.0-100.0); Mean Platelet Volume 8.8; Monocytes # (A) 0.8 k/uL (0-1.0); Monocytes % (A) 9 %; Neutrophils # (A) 6.7 k/uL (1.3-7.7); Neutrophils % (A) 75 %; Platelet Count 145 k/uL (150-450); RBC 4.06 m/uL (3.80-5.40); RDW 13.7 % (11.5-15.5); WBC 8.8 k/uL (3.8-10.6)
[2023-11-01 11:36] LABS: BUN/Creat Ratio 28.38 Ratio (12.00-20.00); Blood Urea Nitrogen 22.7 mg/dL (9.0-27.0); Calcium 8.2 mg/dL (8.7-10.3); Carbon Dioxide 19.9 mmol/L (21.6-31.8); Chloride 108 mmol/L (96-109); Glucose 96 mg/dL (70-110); Potassium 4.4 mmol/L (3.5-5.5); Sodium 138 mmol/L (135-145)
--- NOTE | 2023-11-01 11:46 | P.PN ---
Subjective Progress Note Date: 11/01/23 Principal diagnosis: Abdominal pain Patient says her pain is somewhat improved. Tolerating diet. Good bowel movement yesterday. Objective - Vital Signs Vital signs: Vital Signs Temp 97.2 F L 11/01/23 08:00 Pulse 49 L 11/01/23 08:30 Resp 16 11/01/23 08:30 BP 134/82 11/01/23 08:00 Pulse Ox 93 L 11/01/23 08:00 FiO2 Intake & Output 10/31/23 11/01/23 11/01/23 18:59 06:59 18:59 Intake Total 1600 120 Balance 1600 120 Intake: IV 600 Intake, IV Titration 1000 Amount Sodium Chloride 0.45% 1, 750 000 ml @ 75 mls/hr IV . [id number] [facility] Rx#:[id number] cefTRIAXone 2 gm In 50 Sodium Chloride 0.9% 50 ml @ 100 mls/hr IVPB Q24HR [facility] Rx#:[id number] metroNIDAZOLE-NS PMX 500 200 mg In Saline 1 100ml.bag @ 100 mls/hr IVPB Q8HR [facility] Rx#:[id number] Oral 120 Other: Voiding Method Diaper Diaper Diaper Incontinent Incontinent Incontinent # Voids 1 2 # Bowel Movements 1 - Exam Abdomen: Soft, mild epigastric tenderness, no rebound or guarding - Labs CBC & Chem 7: 11/01/23 07:35 11/01/23 07:35 Labs: Abnormal Lab Results - Last 24 Hours (Table) 10/31/23 10/31/23 11/01/23 Range/Units 07:42 07:42 07:35 MCHC 31.7 L (32.0-37.0) g/dL Plt Count 145 L (150-450) k/uL Immature Gran # 0.30 H (0.00-0.04) X 10*3/uL Lymphocytes # 0.85 L 0.8 L (0.90-5.00) X 10*3/uL Eosinophils # 0.46 H (0.04-0.35) X 10*3/uL Carbon Dioxide 21.4 L (21.6-31.8) mmol/L BUN 27.4 H (9.0-27.0) mg/dL BUN/Creatinine Ratio 39.14 H (12.00-20.00) Ratio Calcium (8.7-10.3) mg/dL AST 44 H (13-35) U/L Total Protein 4.5 L (6.2-8.2) g/dL Albumin 2.9 L (3.8-4.9) g/dL 11/01/23 Range/Units 07:35 MCHC (32.0-37.0) g/dL Plt Count (150-450) k/uL Immature Gran # (0.00-0.04) X 10*3/uL Lymphocytes # (0.90-5.00) X 10*3/uL Eosinophils # (0.04-0.35) X 10*3/uL Carbon Dioxide 19.9 L (21.6-31.8) mmol/L BUN (9.0-27.0) mg/dL BUN/Creatinine Ratio 28.38 H (12.00-20.00) Ratio Calcium 8.2 L (8.7-10.3) mg/dL AST (13-35) U/L Total Protein (6.2-8.2) g/dL Albumin (3.8-4.9) g/dL Assessment and Plan (1) Abdominal pain Narrative/Plan: Patient underwent EGD yesterday showing significant erosive esophagitis. This is likely the source of patient's complaints. She is eating well however. Continue PPI and Carafate. Consider repeat endoscopy 3 to 6 months to confirm resolution. Spoke with medicine. Will sign off. Please reconsult if needed. Current Visit: Yes Status: Acute Code(s): R10.9 - UNSPECIFIED ABDOMINAL PAIN SNOMED Code(s): 49702733
[2023-11-02 03:35] VITALS: PULSE 53; RESP 16
--- NOTE | 2023-11-02 05:45 | P.PN ---
Subjective Progress Note Date: 11/01/23 This is an 88-year-old female who was recently admitted with abdominal pain with concerns of bowel obstruction being followed by general surgery. NG tube has been removed and patient is tolerating being advanced as well as having bowel movement once. EGD showed erosive esophagitis, hiatal hernia, mild gastritis. Patient also with weakness evaluated by physical therapy and will be going to rehab. Patient requires insurance authorization which is currently pending. Patient denies chest pain or shortness of breath. Patient denies any nausea or vomiting noted. Review of systems: Constitutional: No reports of fatigue, fever, or chills Cardiovascular: No reports of chest pain or palpitations Respiratory: No reports of shortness of breath or cough GI: No reports of nausea, no reports of vomiting, reports abdominal pain is improved : No reports of dysuria or retention Neurovascular: reports of generalized weakness All medications have been reviewed PHYSICAL EXAMINATION: GENERAL: The patient is alert and oriented x2, elderly appearing well developed, well nourished. Obese HEENT: Pupils are round and equally reacting to light. EOMI. no scleral icterus. No conjunctival pallor. Normocephalic, atraumatic. No pharyngeal erythema. No thyromegaly. CARDIOVASCULAR: S1 and S2 muffled PULMONARY: diminished breath sounds bilaterally with no wheezing or rhonchi noted. ABDOMEN: soft. Nontender on exam. obese. non-distended, normoactive bowel sounds. No palpable organomegaly. MUSCULOSKELETAL: No joint swelling or deformity. EXTREMITIES: No cyanosis, clubbing, or pedal edema. NEUROLOGICAL: Gross neurological examination did not reveal any focal deficits. Diffuse weakness SKIN: No rashes. Assessment: Abdominal pain with distention, possible partial small bowel obstruction, improved status post NG tube EGD showing erosive esophagitis with mild gastritis and hiatal hernia. Severe abdominal pain, improved Leukocytosis, present on admission, resolved Hyponatremia CVA/TIA history Obesity with a BMI of 32.8 GI prophylaxis DVT prophylaxis Full code Plan: Recommend to continue with current medications and management with general surgery following. Patient is status post EGD showing gastritis with hiatal hernia and erosive esophagitis Diet has been advanced and NG tube removed and patient is tolerating with no further reports of abdominal pain Encouraged increase activity as tolerated Patient evaluated by PT/OT therapy and will be going to rehab. Patient requires insurance authorization which is currently pending and case management following Possible discharge in the next 24 to 48 hours The impression and plan of care has been dictated by Corine Norton, nurse practitioner as directed. Dr. Edwin MD I have performed a history and examination and MDM of this patient, discussed the same with the dictator, and agree with the dictator's assessment and plan as written ,documented as a scribe. Based on total visit time, I have performed more than 50% of the visit. Any additional findings or plans will be noted. Objective - Vital Signs Vital signs: Vital Signs Temp 97.2 F L 11/01/23 08:00 Pulse 49 L 11/01/23 08:30 Resp 16 11/01/23 08:30 BP 134/82 11/01/23 08:00 Pulse Ox 93 L 11/01/23 08:00 FiO2 Intake & Output 10/31/23 11/01/23 11/01/23 18:59 06:59 18:59 Intake Total 1600 120 Balance 1600 120 Intake: IV 600 Intake, IV Titration 1000 Amount Sodium Chloride 0.45% 1, 750 000 ml @ 75 mls/hr IV . [id number] [facility] Rx#:[id number] cefTRIAXone 2 gm In 50 Sodium Chloride 0.9% 50 ml @ 100 mls/hr IVPB Q24HR [facility] Rx#:[id number] metroNIDAZOLE-NS PMX 500 200 mg In Saline 1 100ml.bag @ 100 mls/hr IVPB Q8HR [facility] Rx#:[id number] Oral 120 Other: Voiding Method Diaper Diaper Bedside Commode Incontinent Incontinent Diaper Incontinent # Voids 1 2 # Bowel Movements 1 - Labs CBC & Chem 7: 11/01/23 07:35 11/01/23 07:35 Labs: Abnormal Lab Results - Last 24 Hours (Table) 11/01/23 11/01/23 Range/Units 07:35 07:35 Plt Count 145 L (150-450) k/uL Lymphocytes # 0.8 L (1.0-4.8) k/uL Carbon Dioxide 19.9 L (21.6-31.8) mmol/L BUN/Creatinine Ratio 28.38 H (12.00-20.00) Ratio Calcium 8.2 L (8.7-10.3) mg/dL
[2023-11-02 08:27] VITALS: BP 152/80; TEMP 98.4
--- NOTE | 2023-11-02 09:23 | P.PN ---
Subjective Progress Note Date: 11/01/23 Principal diagnosis: Reason for follow-up is a leukocytosis and ileus Patient is a 88-year-old female with a past medical history significant for CVA TIA hypertension hyperlipidemia patient initially presented to [facility] this patient noted an episode of intractable nausea and vomiting x 1 day, patient did have evidence of small bowel obstruction and bj vated white count prompting this consultation On today's evaluation that is Patient is status post EGD with a biopsy completed on 10/28/2023. On today's evaluation that is 11/01/2023, Patient is afebrile patient is currently on room air and denies having any shortness of breath, the patient denies any chest pain or cough, the patient denies any nausea vomiting NG has been discontinued however still complaining of abdominal pain. Patient white count is 8.8 creatinine 0.8 Objective - Vital Signs Vital signs: Vital Signs Temp 98.1 F 11/01/23 14:00 Pulse 57 L 11/01/23 14:00 Resp 19 11/01/23 14:00 BP 111/60 11/01/23 14:00 Pulse Ox 97 11/01/23 14:00 FiO2 Intake & Output 10/31/23 11/01/23 11/01/23 18:59 06:59 18:59 Intake Total 1600 120 640 Balance 1600 120 640 Weight 84 kg Intake: IV 600 Intake, IV Titration 1000 Amount Sodium Chloride 0.45% 1, 750 000 ml @ 75 mls/hr IV . [id number] [facility] Rx#:[id number] cefTRIAXone 2 gm In 50 Sodium Chloride 0.9% 50 ml @ 100 mls/hr IVPB Q24HR [facility] Rx#:[id number] metroNIDAZOLE-NS PMX 500 200 mg In Saline 1 100ml.bag @ 100 mls/hr IVPB Q8HR [facility] Rx#:[id number] Oral 120 640 Other: Voiding Method Diaper Diaper Bedside Commode Incontinent Incontinent Diaper Incontinent # Voids 1 2 3 # Bowel Movements 1 - Exam GENERAL DESCRIPTION: An elderly female lying in bed in no distress RESPIRATORY SYSTEM: Unlabored breathing , decreased breath sounds at bases HEART: S1 S2 regular rate and rhythm , ABDOMEN: Soft , no tenderness EXTREMITIES: No edema feet - Labs CBC & Chem 7: 11/01/23 07:35 11/01/23 07:35 Labs: Abnormal Lab Results - Last 24 Hours (Table) 11/01/23 11/01/23 Range/Units 07:35 07:35 Plt Count 145 L (150-450) k/uL Lymphocytes # 0.8 L (1.0-4.8) k/uL Carbon Dioxide 19.9 L (21.6-31.8) mmol/L BUN/Creatinine Ratio 28.38 H (12.00-20.00) Ratio Calcium 8.2 L (8.7-10.3) mg/dL Assessment and Plan (1) Allergy to multiple antibiotics Current Visit: Yes Status: Acute Code(s): Z88.1 - ALLERGY STATUS TO OTHER ANTIBIOTIC AGENTS SNOMED Code(s): 511468384 (2) Leukocytosis Current Visit: Yes Status: Acute Code(s): D72.829 - ELEVATED WHITE BLOOD CELL COUNT, UNSPECIFIED SNOMED Code(s): 866629227 Plan: 1patient with a leukocytosis likely related to abdominal source in this patient who did have evidence of ileus did not mention any evidence of perforation or abscess on the CT and will need to cover for the enteric gram-negative both aerobes and anaerobes to be the likely pathogen 2patient with multiple antibiotic ALLERGIES that would limit the number of antibiotic safe to use, however patient mention she did have taken amoxicillin clinical doubt true penicillin allergy 3patient did have normalization of her white count, patient is currently covered with Rocephin and Flagyl which will be continued while inpatient and monitor clinical course closely Dictation was produced using [employer] dictation software. please excuse any grammatical, word or spelling errors. Time with Patient: Less than 30
[2023-11-02] MEDS: LOSARTAN 25 MG TAB PO STA (11:55)
--- NOTE | 2023-11-02 11:56 | P.PN ---
Subjective Progress Note Date: 11/02/23 Consult reason: chest pain History of present illness: The patient is an 88-year-old female who follows in the office with Dr. Mata. She presented to the emergency room with abdominal discomfort, nausea, and vomiting. The patient states that this started several days ago and she laid down on the floor, but was not able to get back up. She believes she was on the ground for approximately 1 day. The patient denies any syncope or fall. No traumatic injuries, but she did have elevated CK and lactic acidosis. Abdominal ultrasound showed ileus versus small bowel obstruction. Cardiology has been consulted as the patient was reporting some epigastric discomfort. DIAGNOSTICS: EKG shows sinus mechanism without ST or T wave abnormalities Abdominal x-ray shows dilated bowel loops, ileus versus partial obstruction Lab data: WBC 10.7, hematocrit 44.7, hemoglobin 14.1, platelet 165, sodium 144, potassium 4.5, BUN failure 29, creatinine 0.76, CK8 126, troponin 0.02, 0.02 10/28 Patient remains with NG tube in place, on ice chips. She is having lower sternal midsternal chest pain. Blood pressure is elevated 187/69. Heart rate is 48-62. Echocardiogram has been obtained and report is pending. Yesterday, patient was started on clonidine patch 0.1 mg/24 hours. 10/29 Patient remains with NG tube in place but now may take oral medications with clamping of the NG tube. Blood pressure readings remain elevated 141/68-165/61 despite use of 2 clonidine patches. Patient was given hydralazine 10 mg IV push last night. Heart rate is in the 50s. Repeat blood work reveals hemoglobin 13.6, potassium 4.3, BUN 31 creatinine 0.7. 10/30 Blood pressure 122/56. Heart rate in the 40s and 50s. Pulse ox 96% on room air. Potassium 4.3, sodium 144, BUN 31 creatinine 0.7. Chest x-ray reveals mild cardiomegaly. Possible mild pulmonary vascular congestion. CT of the abdomen pelvis reveals findings suggest resolution of the previous small bowel o bstruction. Patient is back to n.p.o. status for EGD and biopsy scheduled today. Echocardiogram reveals EF of 55 to 60%, normal LV function. Mild mitral regurgitation. 10/31 Patient underwent EGD yesterday which revealed erosive esophagitis, hiatal hernia, and mild gastritis. Patient continues to experience abdominal pain. She does states she has a good appetite. She has been started on a regular diet. Blood pressure 134/82, heart rate in the 45-55 range. Pulse ox 93% on room air. Repeat blood work reveals WBC 8.8, hemoglobin 12.1. 11/01 Patient has been continued on regular diet. Blood pressures again are elevated 152/80, heart rate is in the 50s. Pulse ox 96% on room air. PHYSICAL EXAMINATION: This is a 88-year-old female in no apparent distress at the time of my examination. HEENT: Head is atraumatic, normocephalic. Pupils are equal, round. There is no jugular venous distention. No carotid bruit is heard. CHEST EXAMINATION: Lungs are clear to auscultation. No chest wall tenderness is noted on palpation or with deep breathing. HEART EXAMINATION: Heart regular rate and rhythm. S1, S2 heard. Soft systolic murmur. No gallops or rub. ABDOMEN: Soft, nontender. Bowel sounds are heard. No organomegaly noted. EXTREMITIES: 2+ peripheral pulses with no evidence of peripheral edema and no calf tenderness noted. NEUROLOGIC EXAMINATION: Patient is awake, alert and oriented x3. FINAL ASSESSMENT AND PLAN: Chest discomfort, likely epigastric Small bowel obstruction History of coronary artery disease History of cardiomyopathy History hypertension PLAN: Increase losartan to 50 mg daily Continue decreased dose of Lopressor 12.5 mg twice daily with parameters to hold if heart rate is less than 55 Further recommendations to be based on clinical course Nurse practitioner note has been reviewed, I agree with documented findings and plan of care. Patient was seen and examined. Objective - Vital Signs Vital signs: Vital Signs Temp 98.4 F 11/02/23 07:49 Pulse 53 L 11/02/23 07:49 Resp 16 11/02/23 07:49 BP 152/80 11/02/23 07:49 Pulse Ox 96 11/02/23 07:49 FiO2 Intake & Output 11/01/23 11/02/23 11/02/23 18:59 06:59 18:59 Intake Total 640 700 120 Balance 640 700 120 Weight 84 kg Intake: Intake, IV Titration 100 Amount metroNIDAZOLE-NS PMX 500 100 mg In Saline 1 100ml.bag @ 100 mls/hr IVPB Q8HR [facility] Rx#:[id number] Oral 640 600 120 Other: Voiding Method Bedside Commode Bedside Commode Diaper Diaper Incontinent Incontinent # Voids 3 2 - Labs CBC & Chem 7: 11/01/23 07:35 11/01/23 07:35
--- NOTE | 2023-11-02 14:18 | P.DS ---
Providers Date of admission: 10/26/23 18:47 Expected date of discharge: 11/02/23 Attending physician: Mandie Snider MD Consults: 10/27/23 12:02 Consult Physician Routine Consulting Provider: Guero Sears Consult Reason/Comments: Leukocytosis/ sepsis Do you want consulting provider notified?: Yes 10/28/23 04:53 Consult Physician Routine Consulting Provider: Lucas Barnett Consult Reason/Comments: chest pain Do you want consulting provider notified?: Yes, Notify in am Primary care physician: Elizabet Christianson [facility] Hospital Course: Final diagnosis Abdominal pain with distention, possible partial small bowel obstruction, improved status post NG tube EGD showing erosive esophagitis with mild gastritis and hiatal hernia. Severe abdominal pain, improved Leukocytosis, present on admission, resolved Hyponatremia Hyperlipidemia Hypertension CVA/TIA history Obesity with a BMI of 32.8 GI prophylaxis DVT prophylaxis Full code Discharge disposition Patient is being discharged in a stable condition with guarded prognosis to [facility]. Patient will follow-up with Elizabet Christianson NP in the outpatient setting upon discharge. Patient is to continue with current medications as prescribed and outpatient follow-up with general surgery and cardiology as scheduled. Total time taken is greater than 35 minutes. Hospital course This is a 88-year-old female who was recently admitted with abdominal pain with concerns of bowel obstruction initially had an NG tube and being evaluated by general surgery. Conservative management recommended and patient is having improvements and having bowel movements. NG tube was removed and patient is tolerating diet recommend to continue to slowly advance and continue with low fiber diet for the next few days. Patient also being evaluated by cardiology with adjustments to medications recommending outpatient follow-up. Patient to follow-up with general surgery outpatient for biopsy results from EGD. Patient did undergo EGD showing erosive esophagitis with a hiatal hernia and mild gastritis. Patient has been cleared by consultations. Please refer to consultation notes for further HPI. Patient was evaluated by physical therapy recommending rehab as patient is significantly weak and patient is agreeable. Patient insurance authorization has been obtained and patient will be going to [facility] today. Currently no reports of chest pain, shortness of breath, or palpitations. Patient is afebrile. No reports of nausea or vomiting and patient is tolerating diet. Patient will be discharged to [facility] today. Guarded prognosis and high risk for readmission given patient's significant comorbidities. Physical exam: Gen: This is a 88-year-old female who is awake, alert and oriented x 2, baseline, well-developed, well-nourished, obese, elderly appearing HEENT: Head is atraumatic, normocephalic. Pupils equal, round. Sclerae is anicteric. NECK: Supple. No JVD. No lymphadenopathy. No thyromegaly. LUNGS: Diminished breath sounds bilaterally otherwise clear to auscultation. No wheezes or rhonchi. No intercostal retractions. HEART: S1, S2 are muffled ABDOMEN: Soft. Obese. Mildly tender on palpation. Bowel sounds are present. No masses. EXTREMITIES: No pedal edema. No calf tenderness. NEUROLOGICAL: Patient is awake, alert and oriented x2. Cranial nerves 2 through 12 are grossly intact. Diffusely weak Please refer to medication reconciliation sheet for a list of medications. The impression and plan of care has been dictated by Corine Norton, Nurse Practitioner as directed. Dr. Edwin MD I have performed a history and examination and MDM of this patient, discussed the same with the dictator, and agree with the dictator's assessment and plan as written ,documented as a scribe. Based on total visit time, I have performed more than 50% of the visit. Patient Condition at Discharge: Stable Plan - Discharge Summary Discharge Rx Participant: No New Discharge Prescriptions: New Omeprazole [PriLOSEC] 20 mg PO AC-BRKFST #90 cap Nitroglycerin Sl Tabs [Nitrostat] 0.4 mg SUBLINGUAL Q5M PRN tab PRN Reason: Chest Pain metroNIDAZOLE [Flagyl] 500 mg PO TID #21 tab Sucralfate [Carafate] 1 gm PO ACHS #120 tab Heparin Sodium,Porcine (1 ml) [Heparin Sodium] 5,000 unit SQ Q12HR each Metoprolol Tartrate [Lopressor] 12.5 mg PO BID tab Nystatin 100,000 Unit/gm Powd [Mycostatin Powder] 1 applic TOPICAL BID each HYDROcodone/APAP 5-325MG [[place]ecil 5-325] 1 each PO Q6HR PRN #4 tab PRN Reason: Pain Losartan [Cozaar] 50 mg PO DAILY tab cefUROXime axetiL [Ceftin] 500 mg PO BID 7 Days #14 tab Continue Atorvastatin [Lipitor] 80 mg PO DAILY #30 tab Discontinued Metoprolol Tartrate [Lopressor] 25 mg PO BID #60 tab Spironolactone [Aldactone] 25 mg PO DAILY #30 tab Famotidine [Pepcid] 20 mg PO DAILY Discharge Medication List Atorvastatin [Lipitor] 80 mg PO DAILY #30 tab 06/10/18 [Rx] Omeprazole [PriLOSEC] 20 mg PO AC-BRKFST #90 cap 10/31/23 [Rx] Sucralfate [Carafate] 1 gm PO ACHS #120 tab 10/31/23 [Rx] HYDROcodone/APAP 5-325MG [Cecil 5-325] 1 each PO Q6HR PRN #4 tab 11/02/23 [Rx] Heparin Sodium,Porcine (1 ml) [Heparin Sodium] 5,000 unit SQ Q12HR each [Rx] Losartan [Cozaar] 50 mg PO DAILY tab 11/02/23 [Rx] Metoprolol Tartrate [Lopressor] 12.5 mg PO BID tab 11/02/23 [Rx] Nitroglycerin Sl Tabs [Nitrostat] 0.4 mg SUBLINGUAL Q5M PRN tab 11/02/23 [Rx] Nystatin 100,000 Unit/gm Powd [Mycostatin Powder] 1 applic TOPICAL BID each 11/02/23 [Rx] cefUROXime axetiL [Ceftin] 500 mg PO BID 7 Days #14 tab 11/02/23 [Rx] metroNIDAZOLE [Flagyl] 500 mg PO TID #21 tab 11/02/23 [Rx] Follow up Appointment(s)/Referral(s): Elizabet Christianson FNPBC [Primary Care Provider] - 1-2 days Stan Spivey MD [Medical Doctor] - 1 Week Activity/Diet/Wound Care/Special Instructions: Patient is going to [place] [facility] as tolerated Continue current diet Follow-up with general surgery outpatient Continue with medications as prescribed Patient to continue with antibiotics for 7 days Discharge Disposition: TRANSFER TO SNF/ECF
[2023-11-03] MEDS ORDERED: LOSARTAN 50 MG TAB PO SCH (09:00)
--- NOTE | 2023-11-06 13:38 | CDI ---
Documentation Clarification Form Date: 11/06/2023 12:44:53 PM From: Natividad Andres RN, CCDS Phone: [phone] Admit Date: 10/26/2023 06:47:00 PM Patient Name: Mariely Savage Visit Number: [id number] Discharge Date: 11/02/2023 04:26:00 PM ATTENTION: The Clinical Documentation Specialists (CDI) and [facility] Coding Staff appreciate your assistance in clarifying documentation. Please respond to the clarification below the line at the bottom and electronically sign. The CDI & [facility] Coding staff will review the response and follow-up if needed. Please note: Queries are made part of the Legal Health Record. If you have any questions, please contact the author of this message via ITS. Dr. Mandie Snider The patient had a bowel obstruction, lactic acidosis, tachycardia and leukocytosis. Based on this information and the findings below, is there an additional diagnosis that is clinically appropriate for this patient? History/Risk Factors: 88 year old female with hx of CVA, HLD and HTN. Presented after laying on floor for 12 hours unable to get up, had abdominal pain, nausea and vomiting. Admitted with small bowel obstruction and rhabdomyolysis. Clinical Indicators: 10/25-10/31 Labs: WBC 19.7-15.2-10.7-9.50, Neutrophils 17.3-13.0-8.6-6.7 10/25 Lactic acid: 2.8-2.0 10/25 CK: [id number] 10/25 Vital signs: HR 113, RR 28 10/26 H&P: "Marked leukocytosis; with elevated lactic acid levels; no clear source of infection; patient has been placed on IV Rocephin in ED along with Flagyl. Will continue with current antibiotics and consult ID for further evaluation and recommendations." 10/27 Cardiology consult: "No traumatic injuries, but she did have elevated CK and lactic acidosis." Discharge summary: "Severe abdominal pain, improved. Leukocytosis, present on admission, resolved. Abdominal pain with distention, possible partial small bowel obstruction, improved status post NG tube." Treatment: NGT to LCS; IM Rocephin 1000mg x1 on 10/26; IV Rocephin 2gm Q24H 10/26- 11/01; IV Flagyl 500mg Q8H 10/26-11/01; 0.9 NS @75mL/hr 10/25-10/28; 0.45 NS @ 75mL/hr 10/28-10/31 ID consult: Reason for consult: leukocytosis/sepsis. Patient with a leukocytosis, likely related to abdominal source in this patient who did have evidence of ileus. Is there an additional diagnosis that is clinically appropriate for this patient? [#### ] Non-infectious SIRS causing lactic acidosis [ ] Non-infectious SIRS not causing lactic acidosis [ ] Non-infectious SIRS without organ dysfunction [ ] Sepsis, present on admission [ ] No additional diagnosis/not clinically significant [ ] Other, please specify [ ] Unable to determine SIRS Criteria: 2 or more of the following may indicate SIRS Temperature < 96.8F (36C) or > 101.0F (38.3C) Heart Rate > 90 bpm Respiratory Rate > 20 breaths/min or PaCO2 < 32 mmHg White Blood Cell Count > 12,000 or < 4,000 cells/mm3 or > 10% bands MTDD
== END 2023-11-02 16:26 | DRG 388 ==
LOC: EC 16:31 → 5NMEDONC 18:47
PROVIDERS: ADMIT Internal Medicine; ATTEND Internal Medicine
PROC: 0DB78ZX Excision of Stomach, Pylorus, Via Natural or Artificial Opening Endoscopic, Diagnostic (ICD-10-PCS; 2023-10-31)
PROC: 0DB48ZX Excision of Esophagogastric Junction, Via Natural or Artificial Opening Endoscopic, Diagnostic (ICD-10-PCS; principal; 2023-10-31 07:30)
DX: K56.600 Partial intestinal obstruction, unspecified as to cause (principal); R65.11 Systemic inflammatory response syndrome (SIRS) of non-infectious origin with acute organ dysfunction; E87.1 Hypo-osmolality and hyponatremia; M62.82 Rhabdomyolysis; K22.10 Ulcer of esophagus without bleeding; E87.20 Acidosis, unspecified; E66.9 Obesity, unspecified; E78.5 Hyperlipidemia, unspecified; I10 Essential (primary) hypertension; I25.10 Atherosclerotic heart disease of native coronary artery without angina pectoris; K29.70 Gastritis, unspecified, without bleeding; R32 Unspecified urinary incontinence; K44.9 Diaphragmatic hernia without obstruction or gangrene; Z86.73 Personal history of transient ischemic attack (TIA), and cerebral infarction without residual deficits; Z68.32 Body mass index [BMI] 32.0-32.9, adult; Z79.899 Other long term (current) drug therapy; Z87.19 Personal history of other diseases of the digestive system; Z88.1 Allergy status to other antibiotic agents; Z90.49 Acquired absence of other specified parts of digestive tract; Z88.5 Allergy status to narcotic agent; Z88.0 Allergy status to penicillin; Z91.040 Latex allergy status; Z88.2 Allergy status to sulfonamides
CPT/HCPCS: 36415; 43239; 71045; 74019; 74177; 80048; 80053; 81001; 82550; 83605; 84484; 85025; 85610; 88305; 93005; 93306; 96374; 99285